=== PATIENT | female | born 1945 | race Caucasian/White ===

== ENCOUNTER 2019-11-26 13:15 | Outpatient (RCR) | payer OTHER, SELFPAY ==
[2019-11-01 12:35] VITALS: BP_SYST 100
--- NOTE | 2019-11-01 13:50 | PTOPEVAL ---
PHYSICAL THERAPY EVALUATION AND PLAN OF CARE Thank you for referring this patient to [facility]. I recommend Georgia Novak participate in physical therapy 1x/week for 3-4weeks for treatment of left shoulder pain. Please review, sign, date and return this plan of care CONSTANTINO. I agree with and certify that the following plan of care is medically necessary. Referring Physician Date Attending Provider: Obi Dee MD Evaluation Outpatient Past Medical History Cardiovascular History Hx Congenital Heart Disease Yes: medication: entrusto Other History Hx Cancer Yes: colon cancer 2016, no current tx but not remission yet Evaluation Information Diagnosis left shoulder pain Onset 06/2019 Cause insidious Subjective Information Here today for evaluation of Query Text:As Reported By Patient/ left shoulder pain last 3 Family months. had a cortisone injection in September that helped to relieve pain, but she continues to have difficulty raising arm, reaching behind back, putting left arm in coat. There is weakness as she tries to perform, but also has pain with certain range. Typically a left side sleeper. lymphnodes removed from left clavicular region in 2015 Diagnostic Tests X-Rays For This Problem Yes: mild AC joint OA; type 2 acromion Pain Scale Pain Scale Used Numeric (1 - 10) Self Report Pain Assessment Left Shoulder(s) Reported Pain Level 1 Pain Description Aching Radicular Pain Location stiffness Pain Frequency Chronic,Intermittent Current Pain Intensity 1 Lowest Pain Intensity 0 Greatest Pain Intensity 4 Other Pain Aggravating Factors reaching and stretching Pain Behaviors None Pain Score Pain Score 1: Self Report Cervical ROM Cervical Rotation Right (0-90) 40 Query Text:Active in Degrees Cervical Rotation Left (0-90) 57 Query Text:Active in Degrees Scapular/ Shoulder Range of Motion Left Shoulder Flexion - Active 108 Shoulder Flexion - Passive 125 Shoulder Abduction - Active 80 Shoulder Abduction - Passive 100 Shoulder Medial Rotation - Active L4 Query Text:Reach Behind the Back Shoulder Lateral Rotation - Active 59 Scapular/Shoulder Range of Motion after session
--- NOTE | 2019-11-19 09:43 | PCPTNOTE ---
Patient called & cancelled scheduled appointment this date due to COVID-19 precautions.
--- NOTE | 2019-11-26 14:14 | PTOPEVAL ---
PHYSICAL THERAPY PLAN OF CARE UPDATE AND PROGRESS REPORT Thank you for referring this patient to [facility]. I recommend a follow-up appointment in 2 weeks. Please review, sign, date and return this plan of care CONSTANTINO. I agree with and certify that the following plan of care is medically necessary. Referring Physician Date Attending Provider: Obi Dee MD Diagnosis left shoulder pain Onset 06/2019 Cause insidious Subjective Information Here today for evaluation of Query Text:As Reported By Patient/ left shoulder pain/decreased Family ROM. She reports she feels she is improving and progressing well. She has a luis antonio system at home to assist with ROM gains. Overall pain is very minimal except at end range motions. lymphnodes removed from left clavicular region in 2015 Diagnostic Tests X-Rays For This Problem Yes: mild AC joint OA; type 2 acromion Pain Assessment Timing of Pain Assessment Timing of Pain Assessment Assessment Pain Scale Pain Scale Used Numeric (1 - 10) Self Report Pain Assessment Left Shoulder(s) Reported Pain Level 1 Pain Description Aching Radicular Pain Location stiffness Pain Frequency Chronic,Intermittent Other Pain Aggravating Factors reaching and stretching Pain Behaviors None Pain Score Pain Score 1: Self Report Upper Extremity Range of Motion Scapular/ Shoulder Range of Motion Left Shoulder Flexion - Active 131 Shoulder Abduction - Active 121 Shoulder Medial Rotation - Active L4 Query Text:Reach Behind the Back Shoulder Lateral Rotation - Active 65 Scapular/Shoulder Range of Motion after session: flexion: 139deg Comments , abduction: 140deg; passive IR behind back: L1 horizontal abductioN: 90deg Upper Extremity Muscle Strength Testing Scapular/Shoulder Left Scapular Retraction - Middle Trapezius 4 Good Scapular Retraction - Lower Trapezius 4- Good - Shoulder Flexion Strength 5 Normal Shoulder Abduction Strength 4 Good Shoulder Medial Rotation Strength 5 Normal Shoulder Lateral Rotation Strength 5 Normal Special Tests-Upper Extremity Shoulder Special Tests Empty Can (supraspinatus) Test Positive Left Painful Arc Negative Left Drop Arm Test Negative Left Hawkin's Gerard Test Positive Left PT Clinical Summary Georgia Novak is progressing well toward optimal
--- NOTE | 2019-12-06 15:31 | PCPTNOTE ---
Admitting Provider: Attending Provider: Obi Dee MD Patient:Georgia Davis Date of :1945 Georgia Novak called to cancel her last appointment as she feels she is doing well and prefers to stay home according to COVID-19 precautions. Her last assessment was on 11/26/2019, therefore (he/she) will be discharged at this time. Patient?s initial visit was on 11/01/2019 and she had a total of 4 visits. The goals have been met. Thank you for referring this patient to [facility]. Please review, sign, date and return this discharge summary CONSTANTINO. I have been updated about the patient's current status and I agree with discharge from the above service at this time. Referring Physician Date
== END 2019-12-07 09:25 | disposition home or self-care (01) ==
LOC: ANHPT 13:15
PROVIDERS: PCP Internal Medicine; Visit Provider Orthopaedic Surgery
DX: M75.82 Other shoulder lesions, left shoulder (principal)
CPT/HCPCS: 97110; 97140; 97161

== ENCOUNTER 2020-01-15 14:42 | Outpatient (CLI) | payer OTHER, SELFPAY | END 2020-01-15 14:43 | disposition home or self-care (01) | LOC: ANHLAB 14:44 | PROVIDERS: PCP Internal Medicine; Visit Provider Internal Medicine | DX: E03.9 Hypothyroidism, unspecified (principal) | CPT/HCPCS: 36415; 84443 ==

== ENCOUNTER 2020-07-18 08:38 | Outpatient (CLI) | payer OTHER, SELFPAY ==
[2020-07-18 09:09] LABS: Basophils Percent Auto 0.8 % (0.2-1.2); Eosinophils Absolute Auto 0.3 K/mm3 (0-0.3); Eosinophils Percent Auto 6.1 % (0-4.4); Hematocrit 40.7 % (37.0-47.0); Hemoglobin 13.6 g/dL (12.0-15.0); Immature Granulocyte Absolute 0.01 K/mm3 (0.00-0.031); Immature Granulocyte Percent A 0.2 % (0-0.5); Lymphocytes Absolute Auto 1.46 K/mm3 (0.9-3.2); Lymphocytes Percent Auto 27.8 % (18.3-44.2); Mean Corpuscular HGB Conc 33.4 g/dl (32-36); Mean Corpuscular Hemoglobin 31.3 pg (26-34); Mean Corpuscular Volume 93.8 fl (80-100); Monocytes Absolute Auto 0.6 K/mm3 (0.1-0.6); Monocytes Percent Auto 10.6 % (2.6-8.5); Neutrophils Absolute Auto 2.9 K/mm3 (1.3-6.7); Neutrophils Percent Auto 54.5 % (45.5-73.1); Platelet Count Result 169 k/mm3 (150-375); Red Blood Count 4.34 M/mm3 (4.2-5.4); Red Cell Distribution Width 12.8 % (11.5-14.5); White Blood Count 5.3 K/mm3 (4.5-10.0)
[2020-07-18 09:20] LABS: Add Urine Microscopic? YES; Appearance Urine Clear (Clear); Bilirubin Urine Negative (Negative); Blood Urine Negative (Negative); Color Urine Yellow (Yellow); Glucose Urine UA Negative (Negative); Ketones Urine Negative (Negative); Leukocyte Esterase Ur Trace LEU/UL (NEGATIVE); Mucus Urine Rare /lpf; Nitrate Urine Negative (Negative); Protein Urine Negative (Negative); RBC Urine 0-2 /hpf (0-2); Specific Grav Ur 1.012 (1.001-1.035); Squamous Epithelial Cell Urine Rare /hpf (Few); Transitional Epi Cells Urine Rare /hpf (None Seen); Urobilinogen Urine Negative mg/dL (<2.0); WBC Urine 0-3 /hpf (0-3)
[2020-07-18 09:22] LABS: Alanine Aminotransferase 17 U/L (4-35); Albumin Level 4.3 g/dL (3.5-5.1); Alkaline Phosphatase 76 U/L (38-126); Anion Gap 7 mmol/L (8-16); Aspartate Amino Transferase 29 U/L (14-36); Bilirubin,Total 0.8 mg/dL (0.2-1.3); Blood Urea Nitrogen 12 mg/dL (7-17); Calcium 9.4 mg/dL (8.4-10.2); Carbon Dioxide 30 mmol/L (22-30); Chloride 105 mmol/L (98-107); Cholesterol 189 mg/dL (0-200); Estimated Glomerular Filt Rate 55; Glucose 104 mg/dL (65-105); HDL Direct 80 mg/dL; Potassium 4.2 mmol/L (3.4-5.0); Sodium 142 mmol/L (137-145); Triglycerides 103 mg/dL (<150)
[2020-07-18 09:33] LABS: LDL Cholesterol Direct 81 mg/dL
== END 2020-07-18 08:39 | disposition home or self-care (01) ==
PROVIDERS: PCP Internal Medicine; Visit Provider Internal Medicine
DX: E03.9 Hypothyroidism, unspecified (principal); E55.9 Vitamin D deficiency, unspecified; E78.2 Mixed hyperlipidemia; G62.9 Polyneuropathy, unspecified; F33.42 Major depressive disorder, recurrent, in full remission; I50.42 Chronic combined systolic (congestive) and diastolic (congestive) heart failure
CPT/HCPCS: 36415; 80053; 80061; 81001; 82306; 84443; 85025

== ENCOUNTER 2020-09-23 09:08 | Outpatient (RCR) | payer OTHER, SELFPAY | END 2020-12-22 23:59 | disposition home or self-care (01) | LOC: ANHVASCINF 09:08 | PROVIDERS: PCP Internal Medicine; Visit Provider Internal Medicine | DX: Z45.2 Encounter for adjustment and management of vascular access device (principal); C18.9 Malignant neoplasm of colon, unspecified; C78.7 Secondary malignant neoplasm of liver and intrahepatic bile duct | CPT/HCPCS: 96523 ==

== ENCOUNTER 2020-12-25 12:15 | Outpatient (CLI) | payer OTHER, SELFPAY ==
--- NOTE | 2020-12-25 17:32 | WPDPFTINT ---
PFT Procedure Performed PFT Procedure Performed Plethysmography (Lung Vol) Diffusing Cap (DLCO) Spirometry w/o Bronchodil PFT Interpretation This is a pulmonary function test with spirometry, plethysmography and diffusing capacity. The test was performed and results interpreted in accordance with the 2019 and 2005 ATS/ERS Task Force guidelines respectively using the Global Lung Function Initiative-2012 reference equations. Patient demonstrated good effort and cooperation. Reproducibility criteria were met. The quality of the spirometry maneuver was Grade A. Findings: Spirometry: the contour the inspiratory and expiratory flow tracing are normal. The FVC is 2.96 L, 97% predicted. The FEV1 is 2.11 L, 90% predicted. The FEV1: FVC ratio 71%. Plethysmography: The total lung capacity is 4.99 L, 91% predicted. The functional residual capacity is 2.68 L, 85% predicted. The residual volume is 2.01 L, 84% predicted. Diffusing capacity: The absolute diffusion capacity is 14.9, 70% predicted. The diffusing capacity corrected for alveolar volume is 3.30, 80% predicted. Impression: The spirometry is normal without evidence of an obstructive abnormality. The lung volumes are normal. The diffusing capacity is normal. There are no prior studies for comparison
== END 2020-12-25 12:16 | disposition home or self-care (01) ==
LOC: ANHPFT 12:16
PROVIDERS: PCP Internal Medicine; Visit Provider Nurse Practitioner Adult Health
DX: R06.02 Shortness of breath (principal)
CPT/HCPCS: 94375; 94726; 94729

== ENCOUNTER 2021-02-25 09:21 | Outpatient (CLI) | payer OTHER, SELFPAY ==
--- NOTE | ~2021-02-25 | MM_ITS ---
EXAMINATION: MM screening isidro BI w tamara HISTORY: Screening TECHNIQUE: Craniocaudal and mediolateral oblique 3-D tomosynthesis images were obtained and synthetic 2-D images were generated. CAD analysis was submitted and interpreted. COMPARISON: Comparison to multiple prior studies sequentially, with oldest reviewed study dated 05/29. BREAST PARENCHYMAL COMPOSITION: There are scattered areas of fibroglandular density. FINDINGS: The right breast is stable without evidence for malignancy. There is a port overlying the r ight axilla. There is a new irregular shaped mass in the upper outer quadrant of the left breast post eriorly measuring approximately 5 mm. IMPRESSION: 1. New irregular shaped left breast mass, upper outer quadrant. 2. Additional spot compression and mediolateral views with possible follow-up breast ultrasound recom mended. BI-RADS Category 0: Incomplete: Needs additional imaging evaluation. Reviewed, dictated and finalized at location A. IMPRESSION: 1. New irregular shaped left breast mass, upper outer quadrant. 2. Additional spot compression and mediolateral views with possible follow-up b reast ultrasound recommended. BI-RADS Category 0: Incomplete: Needs additional imaging evaluation.
--- NOTE | ~2021-02-25 | DEXA_ITS ---
Bone Density Report Name: Georgia Davis Age: 75 Sex: Female Ethnicity: White Date of : 1945 Indication: postmenopausal; cancer; Referring Provider: SAFIA RUFF Study: Bone densitometry was performed. Exam Date: February 25, 2021 Accession number: [id number] Bone Density: Region BMD T-score Z-score Classification AP Spine (L1-L4) 1.036 -0.1 2.2 Normal Femoral Neck (Left) 0.780 -0.6 1.4 Normal Total Hip (Left) 0.950 0.1 1.7 Normal Total Hip Bilateral Avg 0.898 -0.4 1.3 Normal Femoral Neck (Right) 0.701 -1.3 0.7 Osteopenia Total Hip (Right) 0.845 -0.8 0.9 Normal World Health Organization criteria for BMD impression classify patients as: Normal (T-score at or above -1.0), Osteopenia (T-score between -1.0 and -2.5), or Osteoporosis (T-score at or below -2.5). 10-year Fracture Risk(1): Major Osteoporotic Fracture 10% Hip Fracture 1.6% Reported Risk Factors: [place] (), Neck BMD=0.701, BMI=26.2 (1) FRAX(R) Version 3.08. Fracture probability calculated for an untreated patient. Fracture probability may be lower if the patient has received treatment. Previous Exams: Region Exam Age BMD T-score BMD Change BMD Change Date g/cm2 vs Baseline vs Previous AP Spine(L1-L4) 02/25/2021 75 1.036 -0.1 0.013(1.2%)# 0.000(0.0%) 01/27/2019 73 1.036 -0.1 0.013(1.3%)# -0.012(-1.1%) 07/26/2014 68 1.048 0.0 0.025(2.4%)# 0.025(2.4%)# 06/14/2012 66 1.023 -0.2 Total Hip(Left) 02/25/2021 75 0.950 0.1 -0.070(-6.9%)# 0.006(0.6%) 01/27/2019 73 0.944 0.0 -0.076(-7.4%)# -0.069(-6.8%)* 07/26/2014 68 1.012 0.6 -0.007(-0.7%)# -0.007(-0.7%)# 06/14/2012 66 1.020 0.6 Total Hip(Right) 02/25/2021 75 0.845 -0.8 -0.133(-13.6%) -0.048(-5.4%)* 01/27/2019 73 0.893 -0.4 -0.085(-8.7%)# -0.060(-6.3%)* 07/26/2014 68 0.953 0.1 -0.025(-2.5%)# -0.025(-2.5%)# 06/14/2012 66 0.978 0.3 *Denotes significance at 95% confidence level, LSC for AP Spine = 0.022 g/cm2, LSC for Total Hip = 0.027 g/cm2 Clinical Information Provided by Patient: Has used the following medications: Calcium Has the following medical conditions: Cancer, COLON Patient maximum height was 67 Menopause Age: 54 No regular weight bearing exercise Drinks caffeinated beverages Onset of menses at age 14 Number of children 1 Impression: The patient has low bone mass, based on the Right Femoral Neck T-score. The ramon
== END 2021-02-25 09:22 | disposition home or self-care (01) ==
LOC: ANHIMG 09:22
PROVIDERS: PCP Internal Medicine; Visit Provider Internal Medicine
DX: Z12.31 Encounter for screening mammogram for malignant neoplasm of breast (principal); M85.851 Other specified disorders of bone density and structure, right thigh; R92.8 Other abnormal and inconclusive findings on diagnostic imaging of breast
CPT/HCPCS: 77063; 77067; 77080

== ENCOUNTER 2021-03-23 12:02 | Outpatient (CLI) | payer OTHER, SELFPAY ==
--- NOTE | ~2021-03-23 | MMUS_ITS ---
EXAMINATION: MM diagnostic mammo unilat LT, US breast LT limited HISTORY: Irregular 5 mm mass in upper outer quadrant of left breast on 02/25/2021 screening mammogram TECHNIQUE: Additional 3-D tomosynthesis images of the left breast were performed and synthetic 2-D im ages were generated. CAD analysis was submitted and interpreted. High resolution upper outer quadrant left breast ultrasound was performed. COMPARISON: 02/25/2021 bilateral digital screening mammogram 11/22/2018 bilateral diagnostic digital mammogram 11/13/2018, 11/10/2017 bilateral digital screening mammogram examinations FINDINGS: MAMMOGRAPHIC FINDINGS: There is an approximately 4.8 mm persistent suspicious irregular high density opacity in the upper ou ter quadrant of the left breast. Malignancy is suspected. ULTRASOUND: New 12:00 6 cm from the nipple there is an antiparallel irregular hypoechoic approximately 4.9 mm the 3.4 mm wide mass with minimal adjacent vascularity on color flow imaging, with posterior shadowing. IMPRESSION: 1. 4.9 mm irregular new mass in inner aspect of upper outer quadrant of left breast 6 cm from the nip ple. 2. Stereotactic biopsy is recommended. (The lesion is much easier to identify on mammography as opposed ultrasound.) BI-RADS category 4, suspicious findings. Dr. Whiteside telephoned the report and recommendation for stereotactic biopsy of left breast mass on 03/23 at 1315 hours to voicemail at [phone]. Reviewed, dictated and finalized at location A. IMPRESSION: 1. 4.9 mm irregular new mass in inner aspect of upper outer quadrant of left br east 6 cm from the nipple. 2. Stereotactic biopsy is recommended. (The lesion is much easier to identify on mammography as opposed ultrasound.) BI-RADS category 4, suspicious findings. Dr. Whiteside telephoned the report and recommendation for stereotactic biopsy of le ft breast mass on 03/23/2021 at 1315 hours to voicemail at [phone]. IMPRESSION: 1. 4.9 mm irregular new mass in inner aspect of upper outer quadrant of left br east 6 cm from the nipple. 2. Stereotactic biopsy is recommended. (The lesion is much easier to identify on mammography as opposed ultrasound.) BI-RADS category 4, suspicious findings. Dr. Whiteside telephoned the report and recommendation for stereotactic biopsy of le ft breast mass on 03/23/2021 at 1315 hours to voicemail at [phone].
== END 2021-03-23 12:03 | disposition home or self-care (01) ==
LOC: ANHIMG 12:06
PROVIDERS: PCP Internal Medicine; Visit Provider Internal Medicine
DX: R92.8 Other abnormal and inconclusive findings on diagnostic imaging of breast (principal)
CPT/HCPCS: 76642; 77065

== ENCOUNTER 2021-04-21 07:01 | Outpatient (CLI) | payer OTHER, SELFPAY ==
[2021-04-21 08:28] LABS: Basophils Absolute Auto 0.1 K/mm3 (0.0-0.1); Basophils Percent Auto 0.8 % (0.2-1.2); Eosinophils Absolute Auto 0.5 K/mm3 (0-0.3); Eosinophils Percent Auto 8.9 % (0-4.4); Hematocrit 42.2 % (37.0-47.0); Hemoglobin 13.5 g/dL (12.0-15.0); Immature Granulocyte Absolute 0.01 K/mm3 (0.00-0.031); Immature Granulocyte Percent A 0.2 % (0-0.5); Lymphocytes Absolute Auto 1.91 K/mm3 (0.9-3.2); Lymphocytes Percent Auto 31.4 % (18.3-44.2); Mean Corpuscular Hemoglobin 30.2 pg (26-34); Mean Corpuscular Volume 94.4 fl (80-100); Mean Platelet Volume 10.7 fl (7.4-10.4); Monocytes Absolute Auto 0.7 K/mm3 (0.1-0.6); Monocytes Percent Auto 11.5 % (2.6-8.5); Neutrophils Absolute Auto 2.9 K/mm3 (1.3-6.7); Neutrophils Percent Auto 47.2 % (45.5-73.1); Platelet Count Result 152 k/mm3 (150-375); Red Blood Count 4.47 M/mm3 (4.2-5.4); Red Cell Distribution Width 13.2 % (11.5-14.5); White Blood Count 6.1 K/mm3 (4.5-10.0)
[2021-04-21 09:04] LABS: Albumin Level 4.4 g/dL (3.5-5.1); Alkaline Phosphatase 67 U/L (38-126); Anion Gap 7 mmol/L (8-16); Aspartate Amino Transferase 27 U/L (14-36); Bilirubin,Total 0.8 mg/dL (0.2-1.3); Blood Urea Nitrogen 13 mg/dL (7-17); Calcium 9.4 mg/dL (8.4-10.2); Carbon Dioxide 26 mmol/L (22-30); Chloride 108 mmol/L (98-107); Estimated Glomerular Filt Rate 54; Glucose 99 mg/dL (65-110); Potassium 4.1 mmol/L (3.4-5.0); Sodium 141 mmol/L (137-145)
[2021-04-21 09:25] LABS: Alanine Aminotransferase 16 U/L (4-35)
[2021-04-21 09:58] LABS: Folic Acid 12.9 ng/mL (2.76->20)
[2021-04-21 10:38] LABS: Creatinine Urine 110.9 mg/dL
[2021-04-21 10:42] LABS: MALB Creatinine Ratio 31.4 mg/g (0-30); Microalbumin Urine Random 34.8 mg/L (0-16.7)
[2021-04-21 12:48] LABS: Vitamin D 25 Hydroxy 57.8 ng/mL
== END 2021-04-21 07:02 | disposition home or self-care (01) ==
LOC: ANHLAB 07:05
PROVIDERS: PCP Internal Medicine; Visit Provider Internal Medicine
DX: D50.9 Iron deficiency anemia, unspecified (principal); G62.9 Polyneuropathy, unspecified; E03.9 Hypothyroidism, unspecified; E55.9 Vitamin D deficiency, unspecified; F33.42 Major depressive disorder, recurrent, in full remission; I50.42 Chronic combined systolic (congestive) and diastolic (congestive) heart failure
CPT/HCPCS: 36415; 80053; 82043; 82306; 82607; 82746; 84443; 85025

== ENCOUNTER 2021-04-23 12:18 | Outpatient (RCR) | payer OTHER, SELFPAY | END 2021-04-29 23:59 | disposition home or self-care (01) | LOC: ANHLAB 12:18 | PROVIDERS: PCP Internal Medicine; Referring Provider Internal Medicine | DX: Z45.2 Encounter for adjustment and management of vascular access device (principal); C18.9 Malignant neoplasm of colon, unspecified; C78.7 Secondary malignant neoplasm of liver and intrahepatic bile duct | CPT/HCPCS: 96523 ==

== ENCOUNTER 2021-06-02 07:41 | Outpatient (CLI) | payer OTHER, SELFPAY | END 2021-06-02 07:42 | disposition home or self-care (01) | PROVIDERS: PCP Internal Medicine; Visit Provider Internal Medicine | DX: E03.9 Hypothyroidism, unspecified (principal) | CPT/HCPCS: 36415; 84443 ==

== ENCOUNTER 2021-09-10 12:40 | Outpatient (CLI) | payer OTHER, SELFPAY | END 2021-09-10 12:41 | disposition home or self-care (01) | LOC: ANHLAB 12:44 | PROVIDERS: PCP Internal Medicine; Visit Provider Internal Medicine Medical Oncology | DX: C18.9 Malignant neoplasm of colon, unspecified (principal); C78.7 Secondary malignant neoplasm of liver and intrahepatic bile duct | CPT/HCPCS: 96523 ==

== ENCOUNTER 2022-02-10 12:34 | Outpatient (RCR) | payer OTHER, SELFPAY | END 2022-05-11 23:59 | disposition home or self-care (01) | LOC: ANHLAB 12:34 | PROVIDERS: PCP Internal Medicine; Visit Provider Internal Medicine Medical Oncology | DX: Z45.2 Encounter for adjustment and management of vascular access device (principal); C50.412 Malignant neoplasm of upper-outer quadrant of left female breast; Z17.0 Estrogen receptor positive status [ER+] | CPT/HCPCS: 96523 ==

== ENCOUNTER 2022-03-22 15:01 | Outpatient (CLI) | payer OTHER, SELFPAY ==
--- NOTE | ~2022-03-22 | DEXA_ITS ---
Bone Density Report Name: UZAIR NOVOA Age: 76 Sex: Female Ethnicity: White Date of : 1945 Indication: postmenopausal; screening for osteoporosis; height loss; cancer; Referring Provider: NENICKI Study: Bone densitometry was performed. Exam Date: March 22, 2022 Accession number: [id number] Bone Density: Region BMD T-score Z-score Classification AP Spine(L1-L4) 1.059 0.1 2.5 Normal Femoral Neck (Left) 0.777 -0.6 1.4 Normal Total Hip (Left) 0.953 0.1 1.8 Normal Femoral Neck (Right) 0.712 -1.2 0.8 Osteopenia Total Hip (Right) 0.872 -0.6 1.2 Normal Total Hip Mean 0.913 -0.3 1.5 Normal World Health Organization criteria for BMD impression classify patients as: Normal (T-score at or above -1.0), Osteopenia (T-score between -1.0 and -2.5), or Osteoporosis (T-score at or below -2.5). 10-year Fracture Risk(1): Major Osteoporotic Fracture 10% Hip Fracture 1.7% Reported Risk Factors: [place] (), Neck BMD=0.712, BMI=26.2 (1) FRAX(R) Version 3.08. Fracture probability calculated for an untreated patient. Fracture probability may be lower if the patient has received treatment. Previous Exams: Region Exam Age BMD T-score BMD Change BMD Change Date g/cm2 vs Baseline vs Previous AP Spine (L1-L4) 03/22/2022 76 1.059 0.1 0.024 (2.3%)* 0.024 (2.3%)* 02/25/2021 75 1.036 -0.1 0.000 (0.0%) 0.000 (0.0%) 01/27/2019 73 1.036 -0.1 Total Hip(Left) 03/22/2022 76 0.953 0.1 0.009 (1.0%) 0.003 (0.4%) 02/25/2021 75 0.950 0.1 0.006 (0.6%) 0.006 (0.6%) 01/27/2019 73 0.944 0.0 Total Hip(Right) 03/22/2022 76 0.872 -0.6 -0.021 (-2.3%) 0.027 (3.2%) 02/25/2021 75 0.845 -0.8 -0.048 (-5.4%) -0.048 (-5.4%) 01/27/2019 73 0.893 -0.4 *Denotes significance at 95% confidence level, LSC for AP Spine = 0.022 g/cm2, LSC for Total Hip = 0.027 g/cm2 Clinical Information Provided by Patient: Has used the following medications: Vitamin D, Calcium Has the following medical conditions: Cancer Patient maximum height was 68 Menopause Age: 54 No regular weight bearing exercise Onset of menses at age 14 Number of children 1 Impression: The patient has low bone mass, based on the Right Femoral Neck T-score. The patient has an estimated ten-year risk of hip fracture of 1.7% and an estimated ten-year risk of major fracture of 10%, based on the WHO FRAX algorithm. No signific
== END 2022-03-22 15:02 | disposition home or self-care (01) ==
PROVIDERS: PCP Internal Medicine; Visit Provider Internal Medicine Medical Oncology
DX: Z78.0 Asymptomatic menopausal state (principal); M85.851 Other specified disorders of bone density and structure, right thigh; C18.9 Malignant neoplasm of colon, unspecified; C78.7 Secondary malignant neoplasm of liver and intrahepatic bile duct
CPT/HCPCS: 77080

== ENCOUNTER 2022-07-30 10:53 | Outpatient (RCR) | payer OTHER, SELFPAY | END 2022-09-09 23:59 | disposition home or self-care (01) | LOC: ANHLAB 10:53 | PROVIDERS: PCP Internal Medicine; Visit Provider Internal Medicine Medical Oncology | DX: Z45.2 Encounter for adjustment and management of vascular access device (principal); C50.412 Malignant neoplasm of upper-outer quadrant of left female breast; Z17.0 Estrogen receptor positive status [ER+] | CPT/HCPCS: 96523 ==

== ENCOUNTER 2022-09-29 15:26 | Outpatient (CLI) | payer OTHER, SELFPAY ==
--- NOTE | ~2022-09-29 | MR_ITS ---
MRI of the right knee Clinical history: Pain Technique: Coronal proton density and proton density-weighted images, sagittal proton-density and T2 fat-sat images, and axial proton-density fat-saturated images were acquired. Findings: Anterior and posterior cruciate ligaments are intact. Medial collateral ligament and the la teral collateral ligament complex are intact. There is probable degenerative change at the proximal a spect of the fibular collateral ligament. Popliteus tendon is intact, with probable mild tendinosis. There is probable focal tearing at the junction of the anterior horn and body lateral meniscus. No me dial meniscal tear identified. Articular cartilage is well preserved in medial lateral compartments. There is extensive high-grade c hondromalacia patella. There there are focal areas of moderate chondromalacia of the femoral trochlea . Small osteophytes are present at the lateral joint line. Bone marrow signals are unremarkable. Extensor mechanism is intact. Small joint effusion is present. Bcwyb-ct-wyamazjf Nichols's cyst is pres ent. Impression: Probable focal vertical tear at the junction of the anterior horn and body of the lateral meniscus. 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 Small joint effusion with ghthv-cb-lrxfhofo Nichols's cyst. Reviewed, dictated and finalized at location . HEAD STOCK CLERK Impression: Probable focal vertical tear at the junction of the anterior horn and body of t he lateral meniscus. 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 Small joint effusion with olalg-ds-xuhhvzfo Nichols's cyst.
== END 2022-09-29 15:27 | disposition home or self-care (01) ==
PROVIDERS: PCP Internal Medicine; Visit Provider Physician Assistant Surgical
DX: M23.91 Unspecified internal derangement of right knee (principal); M94.261 Chondromalacia, right knee; M71.21 Synovial cyst of popliteal space [Baker], right knee; M25.461 Effusion, right knee
CPT/HCPCS: 73721

== ENCOUNTER 2022-10-22 12:14 | Outpatient (CLI) | payer OTHER, SELFPAY ==
--- NOTE | 2022-10-22 12:36 | ECG_ITS ---
Measurements Intervals Maynard Rate: 67 P: 30 OH: 127 QRS: 4 QRSD: 86 T: 23 QT: 388 QTc: 411 Interpretive Statements SINUS RHYTHM LOW QRS VOLTAGE IN PRECORDIAL LEADS [QRS DEFLECTION < 1.0 mV IN CHEST LEADS] OTHERWISE NORMAL ECG NO PREVIOUS ECG AVAILABLE FOR COMPARISON Electronically Signed On 10-22-2022 15:39:40 LINESPERSON by Ruperto Bear M.D.
== END 2022-10-22 12:15 | disposition home or self-care (01) ==
LOC: ANHSURGERY 12:17
PROVIDERS: PCP Internal Medicine; Visit Provider Orthopaedic Surgery
DX: I50.42 Chronic combined systolic (congestive) and diastolic (congestive) heart failure (principal)
CPT/HCPCS: 93005

== ENCOUNTER 2022-10-29 00:33 | Day surgery (SDC) | payer OTHER, SELFPAY ==
[2022-10-21 09:27] VITALS: BMI 25.9
--- NOTE | 2022-10-21 09:55 | PC.NURSE ---
Report to the Outpatient Waiting Room, entrance under the green pavilion located off [facility], at time __1:00PM on date ___10/29/22____. Planned Procedure Time: _3:00PM . Time changes happen often and if your time is changed the preop area will call you the afternoon before. - You and your visitor will be asked to self-screen and do not enter if you have any COVID symptoms. - Only one visitor is requested with a max of two and NO children visitors are allowed at this time. - The patient visitor may be requested to leave or wait in car when not with patient due to distancing restrictions. - A mask is optional within the hospital at this time. Patients may have clear liquids (water, carbonated beverages, clear teas, apple juice) until 3 hours prior to surgery with a maximum of 20 ounces. - No food from midnight until time of surgery Take the following medications with a SIP of water the morning of surgery: ___CARVEDILOL, LEVOTHYROXINE, EYE DROPS DO NOT STOP ANY OF YOUR OTHER PRESCRIPTION MEDICATIONS PRIOR TO SURGERY ?EXCEPT THE FOLLOWING Medications to discontinue per physician ____HOLD ALL VITAMINS/SUPPLEMENTS 3 DAYS PRE-OP Date to take last dose___11/22/22 Please no make-up, nail kyrgyz, hairspray, perfume, deodorant, or body powder the day of surgery. No jewelry (including any body piercings) or valuables the day of surgery, leave them at home. Please take a shower or bath the night before, or the morning of, surgery with an antibacterial soap. Wear comfortable, loose fitting clothing. Children are encouraged to wear pajamas. - Jewelry must be removed prior to entering the operating room. Rings and piercings that are not removed may be cut off. - The hospital will not accept responsibility for valuables. - Please leave all valuables, including medications, at home the day of surgery. If you are going home after surgery, a licensed mechanic driver must drive you home. - NO public transportation without another adult if you receive anesthesia. - We recommend that an adult stay with you for 24 hours following discharge. - We also recommend that you do not drive, make important decision, drink alcoholic beverages, or take any drugs that were not prescribed by your health care provider for at least 24 hours after your discharge time. Follow any additional instructions given to you from your surgeon. If you or anyone in your household have experienced Covid symptoms in the past week, please notify your surgeon or the nurse liaison at the phone number below for possible testing. Telephone instructions given to __PATIENT and asked if any additional questions and then verbalized understanding. Patient advised to call surgeon office or pre surgery nurse liaison [phone] if any additional questions.
[2022-10-29] VITALS (7 sets, daily range): BP systolic 102–118; BP diastolic 48–63; PULSE 57–79; RESP 12–20; TEMP 36.6; O2SAT 100
--- NOTE | 2022-10-29 10:34 | WPDHPUPDATE1 ---
History and Physical Update Update Date/Time: 10/29/22 10:34 History and Physical has been reviewed, including an updated exam of the patient. There are NO changes in the patient's condition. Risks, benefits, and alternatives have been discussed and questions answered. Patient agrees to proceed with procedure.
[2022-10-29] MEDS: ACETAMINOPHEN 500 MG TABLET 1000 MG PO (13:40)
--- NOTE | 2022-10-29 13:53 | WPDANESEPPF ---
Anes - Initial Pre Proc Eval Procedure: Operation Date: 10/29/22 15:00 Proposed Procedures p Right Knee Arthroscopic Partial Lateral Meniscectomy - Obi Dee MD Date/Time: 10/29/22 13:53 Surgeon: Obi Dee MD Pre Op Diagnosis: Lateral Meniscus Tear Right Knee Patient Data Age: 76 Gender: F Height: 1.7 m Weight: 74.5 kg Allergies Allergy/AdvReac Type Severity Reaction Status Date / Time iodine Allergy Mild Sneezing Verified 10/21/22 09:21 aspirin Allergy Unknown Wheezing Verified 10/21/22 09:21 Penicillins Allergy Unknown Hives Verified 10/21/22 09:21 codeine AdvReac Unknown Nausea Verified 10/21/22 09:21 Home Medications Medication Instructions Recorded Confirmed Type sacubitril 24 mg-valsartan 26 mg 0.5 tablet PO BID 08/02/19 10/29/22 History tablet (Entresto) zinc 50 mg tablet 50 mg PO DAILY 01/15/21 10/29/22 History lifitegrast 5 % eye drops in a 1 drp EACH EYE .COMPLEX 04/20/21 10/29/22 History dropperette calcium carbonate 600 mg-vitamin 1 cap PO DAILY 08/10/21 10/29/22 History D3 12.5 mcg (500 unit) capsule (Calcium 600 with Vitamin D3) anastrozole 1 mg tablet 1 mg PO DAILY 07/14/22 10/29/22 History carvedilol 6.25 mg tablet (Coreg) 6.25 mg PO BID 07/14/22 10/29/22 History levothyroxine 75 mcg tablet 75 mcg PO QAM 10/21/22 10/29/22 History Patient hx anesthesia problems: none Family hx anesthesia problems: none Results Review: All pre-operative results and documents have been reviewed as part of the pre-operative evaluation. [facility], [facility] Past Medical History Medical History Bilateral knee pain Osteoarthritis of both knees Tendonitis of left rotator cuff Family History Family History Mother Family history of kidney disease Family history of diabetes mellitus in first degree relative Diabetes mellitus Family history of obesity Sibling Family history of kidney disease Father Family history of lung cancer Cerebrovascular accident Social History Social History Smoking status: Never smoker Second hand tobacco smoke exposure: Yes Alcohol intake: current Drinks per week: 7 Substance use: never Substance use type: does not use Lack of Transportation: No Lack of Food: Never True Current Housing: I Have Housing Concerned About Future Housing: No Difficulty Paying Gas/Electric Bills: No Difficulty Paying for Meds: No Currently Unemployed: No Education: High School Diploma/GED Difficulty w/ Childcare or Family Care: No Living arrangements: with family Additional living arrangements comments: Spiritual care concerns: No Anes - Eval Final PreProcedure Day of Procedure 10/29/22 13:53 Patient weight: normal Heart: regular rate and rhythm Lungs: clear to auscultation Airway: Mallampati scale class II Neurological: alert and oriented Last oral intake: >/= 8 hours ASA classification: III Emergent: no Anesthetic plan: proceed Anesthesia type and monitoring: general LMA and standard monitoring Results Review: All pre-operative results and documents have been reviewed as part of the pre-operative evaluation. Informed Consent: The patient's anesthetic plan and its attendant risks and benefits were discussed with the patient/family/POA. Questions were solicited and answers provided to the satisfaction of the patient/family/POA.
[2022-10-29] MEDS: ceFAZolin 2 GM/D5W 50 ML 2 GM/50 ML BAG IVPB (14:37)
[2022-10-29] MEDS: BUPIVACAINE/EPINEPHRINE 0.5% 10 ML VIAL 30 ML INFILTRATE (14:56)
[2022-10-29] MEDS: LACTATED RINGERS 1,000 ML 30 ML IV CONT (15:27)
[2022-10-29] MEDS: fentaNYL CITRATE INJ (*CRX) 100 MCG/2 ML VIAL 25 MCG IV PUSH (15:55)
--- NOTE | 2022-10-29 16:02 | P.OP_ITS ---
Procedure Note - Detailed Date of Procedure 10/29/22 Pre-op Diagnosis Lateral Meniscus Tear Right Knee Post-op Diagnosis Same Procedure Performed Arthroscopic partial lateral meniscectomy, right knee. 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 Grade 2 chondromalacia on the tibia. Extensive degenerative tearing of the lateral meniscus with 50% debridement required. Minimal anterior horn debridement of the medial meniscus. Grade 3 degenerative changes at the patellofemoral joint. Grade 2 in the medial compartment. Moderate synovitis. Description of Procedure The patient was identified and the surgical site confirmed and signed in the preoperative holding area. Antibiotics were started per protocol. She was brought to the operative room and transferred to the OR table. A general anesthetic was administered. Supine position with the operative lower extremity position in the leg saini after placement of a well padded tourniquet. The leg support was lowered and the contralateral limb was supported with a soft bolster. The knee was prepped and draped in the usual sterile fashion. A time- out was performed. The portal sites were marked and infiltrated with 0.5% Marcaine 20 mL. The limb was exsanguinated and the tourniquet inflated to 300 mL Hg. Standard inferolateral and inferomedial portals were established. Inflow was obtained with the saline pump. The camera was introduced. Diagnostic inspection of the joint was accomplished. The lateral meniscus was debrided with the arthroscopic shaver and punches until stable. The radiofrequency probe was also used for further d?bridement. Medial meniscus required very minimal debridement in the anterior horn. The arthroscopic instruments were removed. The tourniquet released and wounds closed with subcutaneous 4-0 Monocryl absorbable suture. Steri strips and a sterile dressing were applied. A light elastic wrap was placed. The patient was extubated and brought to the recovery room in stable condition. Estimated Blood Loss 5 Drains No Complications No immediate complications Condition Stable Disposition PACU [facility] Billing Surgery - Charge Forward: Surgery Billing
[2022-10-29] MEDS: oxyCODONE HCL (*CRX) 2.5 MG TAB IR PO (16:36)
== END 2022-10-29 17:18 | disposition home or self-care (01) ==
PROVIDERS: PCP Internal Medicine; Visit Provider Orthopaedic Surgery
PROC: (CPT 29870; principal; 2022-10-29 15:00)
DX: M23.361 Other meniscus derangements, other lateral meniscus, right knee (principal); M94.261 Chondromalacia, right knee; M65.861 Other synovitis and tenosynovitis, right lower leg; M17.0 Bilateral primary osteoarthritis of knee
CPT/HCPCS: 29881; A9270; J0690; J1100; J2405; J2704; J3010; J7120

== ENCOUNTER 2022-12-09 10:32 | Outpatient (RCR) | payer OTHER, SELFPAY | END 2022-12-14 23:59 | disposition home or self-care (01) | LOC: ANHLAB 10:32 | PROVIDERS: PCP Internal Medicine; Visit Provider Internal Medicine Medical Oncology | DX: Z45.2 Encounter for adjustment and management of vascular access device (principal); C50.412 Malignant neoplasm of upper-outer quadrant of left female breast; Z17.0 Estrogen receptor positive status [ER+] | CPT/HCPCS: 96523 ==

== ENCOUNTER 2023-03-10 10:51 | Outpatient (CLI) | payer OTHER, SELFPAY ==
[2023-03-10 12:38] LABS: Vitamin D 25 Hydroxy 50.9 ng/mL
== END 2023-03-10 10:52 | disposition home or self-care (01) ==
PROVIDERS: PCP Internal Medicine; Visit Provider Physician Assistant
DX: E55.9 Vitamin D deficiency, unspecified (principal); E03.9 Hypothyroidism, unspecified
CPT/HCPCS: 36415; 36592; 82306; 84443

== ENCOUNTER 2023-04-21 10:20 | Outpatient (RCR) | payer OTHER, SELFPAY | END 2023-04-27 23:59 | disposition home or self-care (01) | LOC: ANHLAB 10:20 | PROVIDERS: PCP Internal Medicine; Visit Provider Internal Medicine Medical Oncology | DX: Z45.2 Encounter for adjustment and management of vascular access device (principal); C18.9 Malignant neoplasm of colon, unspecified | CPT/HCPCS: 96523 ==

== ENCOUNTER 2023-05-05 09:20 | Outpatient (CLI) | payer OTHER, SELFPAY | END 2023-05-05 09:21 | disposition home or self-care (01) | PROVIDERS: PCP Internal Medicine; Referring Provider Internal Medicine Medical Oncology; Visit Provider Physician Assistant | DX: R19.7 Diarrhea, unspecified (principal) | CPT/HCPCS: 87045; 87427; 87449 ==

== ENCOUNTER 2023-08-09 10:43 | Outpatient (RCR) | payer OTHER, SELFPAY | END 2023-09-20 23:59 | disposition home or self-care (01) | LOC: ANHLAB 10:43 | PROVIDERS: PCP Internal Medicine; Visit Provider Internal Medicine Medical Oncology | DX: Z45.2 Encounter for adjustment and management of vascular access device (principal); C18.9 Malignant neoplasm of colon, unspecified | CPT/HCPCS: 96523 ==

== ENCOUNTER 2023-08-16 13:49 | Outpatient (CLI) | payer OTHER, SELFPAY ==
--- NOTE | ~2023-08-16 | DEXA_ITS ---
Bone Density Report Name: UZAIR NOVOA Age: 77 Sex: Female Ethnicity: White Date of : 1945 Indication: postmenopausal; screening for osteoporosis; height loss; cancer; Referring Provider: ROBERT SÁNCHEZ Study: Bone densitometry was performed. Exam Date: August 16, 2023 Accession number: [id number] Bone Density: Region BMD T-score Z-score Classification AP Spine(L1-L4) 1.104 0.5 3.0 Normal Femoral Neck (Left) 0.787 -0.6 1.6 Normal Total Hip (Left) 0.964 0.2 2.0 Normal Femoral Neck (Right) 0.725 -1.1 1.0 Osteopenia Total Hip (Right) 0.855 -0.7 1.1 Normal Total Hip Mean 0.909 -0.3 1.6 Normal World Health Organization criteria for BMD impression classify patients as: Normal (T-score at or above -1.0), Osteopenia (T-score between -1.0 and -2.5), or Osteoporosis (T-score at or below -2.5). 10-year Fracture Risk(1): Major Osteoporotic Fracture 10% Hip Fracture 1.8% Reported Risk Factors: [place] (), Neck BMD=0.725, BMI=26.2 (1) FRAX(R) Version 3.08. Fracture probability calculated for an untreated patient. Fracture probability may be lower if the patient has received treatment. Previous Exams: Region Exam Age BMD T-score BMD Change BMD Change Date g/cm2 vs Baseline vs Previous AP Spine (L1-L4) 08/16/2023 77 1.104 0.5 0.068 (6.6%)* 0.045 (4.2%)* 03/22/2022 76 1.059 0.1 0.024 (2.3%)* 0.024 (2.3%)* 02/25/2021 75 1.036 -0.1 0.000 (0.0%) 0.000 (0.0%) 01/27/2019 73 1.036 -0.1 Total Hip(Left) 08/16/2023 77 0.964 0.2 0.020 (2.2%) 0.011 (1.2%) 03/22/2022 76 0.953 0.1 0.009 (1.0%) 0.003 (0.4%) 02/25/2021 75 0.950 0.1 0.006 (0.6%) 0.006 (0.6%) 01/27/2019 73 0.944 0.0 Total Hip(Right) 08/16/2023 77 0.855 -0.7 -0.038 (-4.3%) -0.017 (-2.0%) 03/22/2022 76 0.872 -0.6 -0.021 (-2.3%) 0.027 (3.2%) 02/25/2021 75 0.845 -0.8 -0.048 (-5.4%) -0.048 (-5.4%) 01/27/2019 73 0.893 -0.4 *Denotes significance at 95% confidence level, LSC for AP Spine = 0.022 g/cm2, LSC for Total Hip = 0.027 g/cm2 Clinical Information Provided by Patient: Has used the following medications: Vitamin D, Calcium Has the following medical conditions: Cancer Patient maximum height was 68 Menopause Age: 54 No regular weight bearing exercise Onset of menses at age 14 Number of children 1 Impression: The patient has low bone mass, based on the
== END 2023-08-16 13:50 | disposition home or self-care (01) ==
PROVIDERS: PCP Internal Medicine; Visit Provider Physician Assistant
DX: M85.851 Other specified disorders of bone density and structure, right thigh (principal); Z78.0 Asymptomatic menopausal state
CPT/HCPCS: 77080

== ENCOUNTER 2023-09-27 10:26 | Outpatient (RCR) | payer OTHER, SELFPAY | END 2023-12-26 23:59 | disposition home or self-care (01) | LOC: ANHLAB 10:26 | PROVIDERS: PCP Internal Medicine; Visit Provider Internal Medicine Medical Oncology | DX: Z45.2 Encounter for adjustment and management of vascular access device (principal); C18.9 Malignant neoplasm of colon, unspecified | CPT/HCPCS: 96523 ==

== ENCOUNTER 2023-11-02 13:56 | Outpatient (CLI) | payer OTHER, SELFPAY ==
--- NOTE | ~2023-11-02 | XR_ITS ---
EXAMINATION: XR knee LT min 4V DATE: 11/02/2023 14:29 INDICATION: Unilateral primary osteoarthritis, left knee. TECHNIQUE: 4 views of left knee including standing views were obtained. COMPARISON: Left knee radiographs 03/22/2018 FINDINGS: There is lateral subluxation of patella. No fracture. There is moderate osteoarthritis of m edial compartment and mild osteoarthritis of lateral and patellofemoral compartments. No knee joint e ffusion. IMPRESSION: 1. Moderate left knee osteoarthritis. Reviewed, dictated and finalized at location E. 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
--- NOTE | ~2023-11-02 | XR_ITS ---
EXAMINATION: XR knee RT min 4V DATE: 11/02/2023 14:29 INDICATION: Unilateral primary osteoarthritis, right knee. TECHNIQUE: 4 views of right knee including standing views were obtained. COMPARISON: Right knee radiographs 05/11/2023 FINDINGS: Bone alignment is normal. No fracture. There is mild osteoarthritis of medial compartment a nd moderate osteoarthritis of lateral and patellofemoral compartments. There is a small knee joint ef fusion. IMPRESSION: 1. Moderate right knee osteoarthritis. 2. Small right knee joint effusion. Reviewed, dictated and finalized at location E. 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
== END 2023-11-02 13:57 | disposition home or self-care (01) ==
PROVIDERS: PCP Internal Medicine; Visit Provider Orthopaedic Surgery
DX: M17.0 Bilateral primary osteoarthritis of knee (principal); M25.462 Effusion, left knee; M25.461 Effusion, right knee
CPT/HCPCS: 73564

== ENCOUNTER 2024-01-27 13:47 | Outpatient (CLI) | payer OTHER, SELFPAY ==
--- NOTE | 2024-01-27 14:03 | ECG_ITS ---
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 Measurements Intervals Kinney Rate: 68 P: 33 OK: 129 QRS: 3 QRSD: 80 T: 39 QT: 364 QTc: 389 Interpretive Statements SINUS RHYTHM WITH FREQUENT VENTRICULAR PREMATURE COMPLEXES LOW QRS VOLTAGE IN PRECORDIAL LEADS ABNORMAL ECG No previous ECG available for comparison Electronically Signed On 01-27-2024 14:48:03 CDT by Saúl Saab D.O.
[2024-01-27 15:04] LABS: Hemoglobin 13.1 g/dL (12.0-15.0)
[2024-01-27 15:41] LABS: Albumin Level 4.1 g/dL (3.5-5.1); Estimated Glomerular Filt Rate 48; Glucose 91 mg/dL (65-110)
== END 2024-01-27 13:48 | disposition home or self-care (01) ==
PROVIDERS: PCP Internal Medicine; Visit Provider Orthopaedic Surgery
DX: Z01.818 Encounter for other preprocedural examination (principal); M17.11 Unilateral primary osteoarthritis, right knee; R53.81 Other malaise; I50.42 Chronic combined systolic (congestive) and diastolic (congestive) heart failure
CPT/HCPCS: 36415; 82040; 82565; 82947; 85014; 85018; 93005

== ENCOUNTER 2024-02-29 11:54 | Outpatient (CLI) | payer OTHER, SELFPAY ==
[2024-02-29 13:43] LABS: Basophils Percent Auto 0.6 % (0.2-1.2); Eosinophils Absolute Auto 0.3 K/mm3 (0-0.3); Hematocrit 41.7 % (37.0-47.0); Hemoglobin 13.9 g/dL (12.0-15.0); Immature Granulocyte Absolute 0.01 K/mm3 (0.00-0.031); Immature Granulocyte Percent A 0.2 % (0-0.5); Lymphocytes Absolute Auto 1.37 K/mm3 (0.9-3.2); Lymphocytes Percent Auto 21.4 % (18.3-44.2); Mean Corpuscular HGB Conc 33.3 g/dl (32-36); Mean Corpuscular Hemoglobin 31.2 pg (26-34); Mean Corpuscular Volume 93.5 fl (80-100); Monocytes Absolute Auto 0.8 K/mm3 (0.1-0.6); Monocytes Percent Auto 12.2 % (2.6-8.5); Neutrophils Absolute Auto 3.9 K/mm3 (1.3-6.7); Neutrophils Percent Auto 60.6 % (45.5-73.1); Platelet Count Result 145 k/mm3 (150-375); Red Blood Count 4.46 M/mm3 (4.2-5.4); Red Cell Distribution Width 13.2 % (11.5-14.5); White Blood Count 6.4 K/mm3 (4.5-10.0)
[2024-02-29 13:52] LABS: Albumin Level 4.4 g/dL (3.5-5.1)
[2024-02-29 13:56] LABS: Anion Gap 6 mmol/L (4-12); Blood Urea Nitrogen 18 mg/dL (7-17); Calcium 9.4 mg/dL (8.4-10.2); Carbon Dioxide 27 mmol/L (22-30); Chloride 107 mmol/L (98-107); Estimated Glomerular Filt Rate 44; Glucose 93 mg/dL (65-110); Potassium 4.4 mmol/L (3.4-5.0); Sodium 140 mmol/L (137-145)
[2024-02-29 13:57] LABS: Partial Thromboplastin Time 25.4 Seconds (22.3-36.8)
[2024-02-29 14:00] LABS: Urine Cotinine NEGATIVE
[2024-02-29 14:22] LABS: Hemoglobin A1C 5.5 % (<5.7)
[2024-02-29 14:54] LABS: MRSA (PCR) NOT DETECTED (NOT DETECTE)
== END 2024-02-29 11:55 | disposition home or self-care (01) ==
LOC: ANHSURGERY 11:58
PROVIDERS: Anesthesiology; PCP Nurse Practitioner; Visit Provider Orthopaedic Surgery
DX: Z01.818 Encounter for other preprocedural examination (principal); N28.9 Disorder of kidney and ureter, unspecified; M17.11 Unilateral primary osteoarthritis, right knee
CPT/HCPCS: 36415; 80048; 80307; 82040; 83036; 85025; 85610; 85730; 87641

== ENCOUNTER 2024-03-19 11:47 | Outpatient (CLI) | payer OTHER, SELFPAY ==
[2024-03-19 12:32] LABS: Hematocrit 42.6 % (37.0-47.0); Mean Corpuscular HGB Conc 32.9 g/dl (32-36); Mean Corpuscular Hemoglobin 31.4 pg (26-34); Mean Corpuscular Volume 95.5 fl (80-100); Mean Platelet Volume 10.6 fl (7.4-10.4); Platelet Count Result 154 k/mm3 (150-375); Red Blood Count 4.46 M/mm3 (4.2-5.4); White Blood Count 6.1 K/mm3 (4.5-10.0)
[2024-03-19 12:40] LABS: Appearance Urine Clear (Clear); Bilirubin Urine Negative (Negative); Blood Urine Negative (Negative); Color Urine Yellow (Yellow); Glucose Urine UA 3+ mg/dL (Negative); Ketones Urine Negative (Negative); Leukocyte Esterase Ur Negative LEU/UL (Negative); Nitrate Urine Negative (Negative); Protein Urine Negative (Negative); Specific Grav Ur 1.025 (1.001-1.035); Urobilinogen Urine 0.2 mg/dL (<2.0); pH Urine 5.5 (5.0-9.0)
[2024-03-19 12:47] LABS: Add Urine Microscopic? NO; Total Protein Urine Random 13 mg/dL; Ur Ttl Prot Creatinine Ratio 0.07 mg/mg (0-0.20)
[2024-03-19 12:53] LABS: Albumin Level 4.3 g/dL (3.5-5.1); Anion Gap 9 mmol/L (4-12); Blood Urea Nitrogen 18 mg/dL (7-17); Calcium 9.3 mg/dL (8.4-10.2); Carbon Dioxide 25 mmol/L (22-30); Chloride 104 mmol/L (98-107); Creatine Kinase 113 U/L (30-135); Estimated Glomerular Filt Rate 44; Glucose 100 mg/dL (65-110); Phosphorus 3.7 mg/dL (2.5-4.5); Potassium 4.1 mmol/L (3.4-5.0); Sodium 138 mmol/L (137-145)
[2024-03-19 12:57] LABS: Parathyroid Intact 41.6 pg/mL (7.5-53.5)
[2024-03-19 13:10] LABS: Complement C3 115 mg/dL (88-165)
[2024-03-19 13:34] LABS: Erythrocyte Sedimentation Rate 11 mm/hr (0-20)
[2024-03-20 12:22] LABS: Kappa\\Lambda Light Chains 1.98 (0.26-1.65); Lambda Light Chain 10.9 mg/L (5.7-26.3)
[2024-03-21 15:13] LABS: Complement Total CH50 57 U/mL (31-60)
[2024-03-24 20:08] LABS: Immunofixation, Serum Normal pattern.
== END 2024-03-19 11:48 | disposition home or self-care (01) ==
LOC: ANHLAB 11:51
PROVIDERS: PCP Nurse Practitioner; Visit Provider Internal Medicine Nephrology
DX: D50.9 Iron deficiency anemia, unspecified (principal); N18.31 Chronic kidney disease, stage 3a
CPT/HCPCS: 36415; 80069; 81003; 82550; 82570; 83883; 83970; 84156; 85027; 85652; 86038; 86039; 86160; 86162; 86334

== ENCOUNTER 2024-03-21 07:32 | Outpatient (NON) | payer OTHER, SELFPAY ==
[2024-03-21 09:55] LABS: Total Volume 24 Hour Urine 2350 ml
[2024-03-22 13:14] LABS: Creat 24 Hr 1.13 g/24 h (0.50-2.15); Pro/Creat Ratio 106 mg/g creat (<150); Pro/Creat Ratio mg/mg 0.106 (<0.150); Protein,total, 24 Hr Ur 120 mg/24 h (<150)
[2024-03-27 16:02] LABS: Albumin 100 %
== END 2024-03-21 07:33 | disposition home or self-care (01) ==
PROVIDERS: PCP Nurse Practitioner; Visit Provider Internal Medicine Nephrology
DX: N18.31 Chronic kidney disease, stage 3a (principal)
CPT/HCPCS: 81050; 84540; 86335

== ENCOUNTER 2024-03-27 16:31 | Outpatient (CLI) | payer OTHER, SELFPAY ==
--- NOTE | ~2024-03-27 | US_ITS ---
EXAMINATION: US renal BI DATE: 03/27/2024 17:35 INDICATION: Stage IIIa chronic kidney disease TECHNIQUE: Multiple ultrasound grayscale images of the kidneys were obtained. COMPARISON: 11/18/2006 FINDINGS: The right kidney measures 10.5 x 3.8 x 6.0 cm. The left kidney measures 10.4 x 5.1 x 5.6 cm. The kidn eys demonstrate normal echogenicity. Mild right hydronephrosis. No left hydronephrosis. No stones id entified. The bladder is normal. A couple prominent left-sided and single week right-sided ureteral j et seen on color Doppler images. IMPRESSION: 1. Mild right hydronephrosis of indeterminate etiology. Correlate with urinalysis and would consider CT for further evaluation.. Reviewed, dictated and finalized at location A. IMPRESSION: 1. Mild right hydronephrosis of indeterminate etiology. Correlate with urinaly sis and would consider CT for further evaluation..
== END 2024-03-27 16:32 | disposition home or self-care (01) ==
PROVIDERS: PCP Internal Medicine; Visit Provider Internal Medicine Nephrology
DX: N13.30 Unspecified hydronephrosis (principal); N18.31 Chronic kidney disease, stage 3a
CPT/HCPCS: 76775

== ENCOUNTER 2024-04-03 01:06 | Day surgery (SDC) | payer OTHER, SELFPAY ==
[2024-02-29 12:13] VITALS: BP 100/59; PULSE 69; RESP 16; TEMP 36.7; O2SAT 97; BMI 26.7
--- NOTE | 2024-02-29 12:39 | PC.NURSE ---
Report to the Outpatient Waiting Room, entrance under the green pavilion located off [facility], at time ___8:30AM____ on date ___04/03/24____. Planned Procedure Time: __10:30AM . Time changes happen often and if your time is changed the preop area will call you the afternoon before. - You and your visitor will be asked to self-screen and do not enter if you have any COVID symptoms. - A mask is optional within the hospital at this time. Patients may have clear liquids (water, carbonated beverages, clear teas, apple juice) until 3 hours prior to surgery with a maximum of 20 ounces. - No food from midnight until time of surgery. Take the following medications with a SIP of water the morning of surgery: ____CARVEDILOL, FLUOXETINE, LEVOTHYROXINE DO NOT STOP ANY OF YOUR OTHER PRESCRIPTION MEDICATIONS PRIOR TO SURGERY ?EXCEPT THE FOLLOWING Medications to discontinue per physician ____HOLD ALL VITAMINS/SUPPLEMENTS 7 DAYS PRE-OP PER DR KILPATRICK Date to take last dose 03/26/24 Please no make-up, nail rwandan, hairspray, perfume, deodorant, or body powder the day of surgery. No jewelry (including any body piercings) or valuables the day of surgery, leave them at home. Please take a shower or bath the night before, or the morning of, surgery with an antibacterial soap. Wear comfortable, loose fitting clothing. - Jewelry must be removed prior to entering the operating room. Rings and piercings that are not removed may be cut off. - The hospital will not accept responsibility for valuables. - Please leave all valuables, including medications, at home the day of surgery. If you are going home after surgery, a licensed driver starting gate must drive you home. - NO public transportation without another adult if you receive anesthesia. - We recommend that an adult stay with you for 24 hours following discharge. - We also recommend that you do not drive, make important decision, drink alcoholic beverages, or take any drugs that were not prescribed by your health care provider for at least 24 hours after your discharge time. Follow any additional instructions given to you from your surgeon. If you or anyone in your household have experienced Covid symptoms in the past week, please notify your surgeon or the nurse liaison at the phone number below for possible testing. Telephone instructions given to ____PATIENT and asked if any additional questions and then verbalized understanding. Patient advised to call surgeon office or pre surgery nurse liaison [phone] if any additional questions.
[2024-04-03] VITALS (15 sets, daily range): BP systolic 90–118; BP diastolic 45–64; PULSE 43–81; RESP 12–18; TEMP 36.1–37.1; O2SAT 92–100
--- NOTE | ~2024-04-03 | XR_ITS ---
EXAMINATION: [id number]_[id number]_CR DATE: 04/03/2024 13:31 INDICATION: Right knee arthroplasty. Postop. TECHNIQUE: 2 views of right knee were obtained. COMPARISON: Right knee radiographs 01/11/2024 FINDINGS: There is a total right knee arthroplasty with patellar resurfacing in near-anatomic alignme nt. No fracture. There is gas in the knee joint and soft tissues, consistent with recent surgery. IMPRESSION: 1. Total right knee arthroplasty in near-anatomic alignment. Reviewed, dictated and finalized at location A.
--- NOTE | 2024-04-03 07:19 | WPDHPUPDATE1 ---
History and Physical Update Update Date/Time: 04/03/24 07:19 History and Physical has been reviewed, including an updated exam of the patient. There are NO changes in the patient's condition. Risks, benefits, and alternatives have been discussed and questions answered. Patient agrees to proceed with procedure.
[2024-04-03] MEDS: ACETAMINOPHEN 500 MG TABLET 1000 MG PO (08:50)
[2024-04-03] MEDS: LACTATED RINGERS 1,000 ML 30 ML IV CONT ×2 (09:30→13:12)
--- NOTE | 2024-04-03 09:44 | WPDANESEPPF ---
Anes - Initial Pre Proc Eval Procedure: Operation Date: 04/03/24 10:30 Proposed Procedures p Right Total Knee Arthroplasty - Obi Dee MD Date/Time: 04/03/24 09:44 Surgeon: Obi Dee MD Pre Op Diagnosis: primary oa right knee Patient Data Age: 78 Gender: F Height: 1.68 m Weight: 75.3 kg Last Vital Signs Temp 36.1 C L 04/03/24 09:19 Pulse 43 L 04/03/24 09:19 Resp 15 04/03/24 09:19 BP 92/62 L 04/03/24 09:19 Pulse Ox 96 04/03/24 09:19 O2 Del Method Room Air 04/03/24 09:19 Allergies Allergy/AdvReac Type Severity Reaction Status Date / Time iodine Allergy Mild Sneezing Verified 03/29/24 12:21 aspirin Allergy Unknown Wheezing Verified 03/29/24 12:21 Cephalosporins Allergy Unknown Other Verified 04/03/24 09:09 Penicillins Allergy Unknown Hives Verified 03/29/24 12:21 Home Medications Medication Instructions Recorded Confirmed Type sacubitril 24 mg-valsartan 26 mg 0.5 tablet PO BID 08/02/19 04/03/24 History tablet (Entresto) zinc 50 mg tablet 50 mg PO DAILY 01/15/21 04/03/24 History lifitegrast 5 % eye drops in a 1 drp EACH EYE .COMPLEX 04/20/21 04/03/24 History dropperette anastrozole 1 mg tablet 1 mg PO DAILY 07/14/22 04/03/24 History dapagliflozin propanediol 10 mg 10 mg PO DAILY 11/18/22 04/03/24 History tablet (Farxiga) fluoxetine 10 mg capsule 10 mg PO DAILY #90 caps 12/08/23 04/03/24 Rx levothyroxine 75 mcg tablet See Rx Instructions .Route 12/08/23 04/03/24 Rx .COMPLEX #90 tabs carvedilol 3.125 mg tablet 3.125 mg PO BID 02/29/24 04/03/24 History Patient hx anesthesia problems: none Family hx anesthesia problems: none Results Review: All pre-operative results and documents have been reviewed as part of the pre-operative evaluation. [facility] Past Medical History Medical History Bilateral knee pain Osteoarthritis of both knees Tendonitis of left rotator cuff Surgical History Surgical History History of colectomy (~2018) History of lumpectomy (~2020) History of right knee surgery (~10/29/22) Arthroscopic partial lateral meniscectomy, right knee. Family History Family History Mother Family history of kidney disease Family history of diabetes mellitus in first degree relative Diabetes mellitus Family history of obesity Sibling Family history of kidney disease Father Family history of lung cancer Cerebrovascular accident Social History Social History Smoking status: Never smoker Second hand tobacco smoke exposure: Yes Alcohol intake: current Drinks per week: 4 Substance use: never Substance use type: does not use Do You Feel Safe in your Home?: Yes Lack of Transportation: No Lack of Food: Never True Current Housing: I Have Housing Concerned About Future Housing: No Difficulty Paying Gas/Electric Bills: No Difficulty Paying for Meds: No Currently Unemployed: No Education: High School Diploma/GED Difficulty w/ Childcare or Family Care: No Living arrangements: with family Additional living arrangements comments: SPOUSE AND DAUGHTER Gender identity (if verbalized by the patient): Female Spiritual care concerns: No Anes - Eval Final PreProcedure Day of Procedure 04/03/24 09:44 Patient weight: overweight Heart: regular rate and rhythm Lungs: clear to auscultation Airway: Mallampati scale class II Neurological: alert and oriented Last oral intake: >/= 8 hours ASA classification: III Emergent: no Anesthetic plan: proceed Anesthesia type and monitoring: general LMA and standard monitoring Results Review: All pre-operative results and documents have been reviewed as part of the pre-operative evaluation. Informed Consent: The patient's anesthetic plan an
[2024-04-03] MEDS: VANCOMYCIN 1,250 MG/NS 250 ML BAG 166.67 MG IVPB (10:15)
[2024-04-03] MEDS: TRANEXAMIC ACID 1,000MG/ISO100 1,000 MG/100 ML BAG 200 MG IVPB (10:16)
[2024-04-03] MEDS: SODIUM CHLORIDE 0.9% IV 38.7 ML, MORPHINE SULFATE INJ (*CRX) 2 MG, ROPivacaine HCL 1% 2... INFILTRATE (10:28)
[2024-04-03] MEDS: GENTAMICIN BONE CEMENT REFOBACIN 1 EACH TOPICAL (12:23)
--- NOTE | 2024-04-03 13:48 | W.PM.PROC2 ---
Procedure Note - Detailed Date of Procedure 04/03/24 Pre-op Diagnosis Severe right knee arthritis, primarily patellofemoral. Post-op Diagnosis Same Procedure Performed Right total knee arthroplasty. Surgeon Obi Dee MD Plumbing Designer Emma Thorpe PA-C Anesthesia General Findings Severe patellofemoral arthritis with moderate lateral disease. Partial PCL release. Anatomic slope and varus valgus angulation approximately 3?. Kinematically aligned Medacta GMK sphere. Medial stabilized component. Lateral condyle worn. Resection thickness 6 mm. Medial thickness unworn with resection thickness 8 mm. Standard posterior 7 mm resections. Initial tibia cut with 7 mm thick medial and 8 mm thick lateral. Additional 2 degree varus cutting block utilized. Final stability check demonstrated negligible varus valgus laxity in extension. 2-3 mm of lateral opening with varus load in 20? of flexion. Unrestricted lateral mobility in flexion. Description of Procedure Preoperative vancomycin was given due to Ancef allergy. General anesthetic was administered. The knee was prepped and draped in the usual sterile fashion. Tourniquet was placed high on the thigh. The limb was exsanguinated and the tourniquet inflated to 300 mmHg during the procedure. Longitudinal incision created and a trivector approach to the knee performed. No initial releases. The patella was measured and cut for resurfacing. The size 2 component fit optimally. The alignment jonelle was placed in the distal femur. The worn paddle was used for the lateral compartment after removing the partially intact cartilage. The medial cartilage was intact. Resection created for the 9 mm implant thickness. The posterior referencing guide was utilized after for the 8 mm posterior implant thickness. The chamfer AP and chamfer cuts were taken. quality assurance technician measurements were performed to ensure the appropriate resections were completed. Attention was turned to the tibia. Partial release of the PCL off of the proximal tibia. The external alignment jig was placed and an anatomic resection was taken to match the anatomic varus valgus, rotation and slope of the tibia. After checking the extension block an additional 2 mm varus cut was taken. Flexion and extension gap balance was optimal with a rectangular extension gap and a trapezoidal flexion gap. The tibia was thus prepared and the trials assembled. Balance and sizing were confirmed for the 11 mm polyethylene. The bony surfaces were prepared and the real implants cemented. The tourniquet was released. Meticulous hemostasis was maintained. The wound was closed with interrupted 1. Vicryl suture followed by 1. Stratafix suture. Subcutaneous tissue similarly closed with interrupted suture followed by running Stratafix suture 2-0 and 3-0. Steri-Strips and sterile dressing applied. Patient extubated and brought to the recovery room in stable condition. Estimated blood loss 50 mL. The pain relieving cocktail was injected early on in the procedure. Implants Medacta. GMK sphere KA. Femur size 4+, tibia T3i4. Flex insert thickness 11 mm. Patella size 2. Estimated Blood Loss 50 Drains No Packing No Pathology None sent Complications No immediate complications Condition Stable Disposition PACU [facility] Billing Surgery - Charge Forward: Surgery Billing
--- NOTE | 2024-04-03 14:15 | SUR.PHASEI ---
Patient meets PACU discharge criteria, unit bed unavailable at this time. Patient placed in extended recovery status.
[2024-04-03] MEDS: fentaNYL CITRATE INJ (*CRX) 100 MCG/2 ML VIAL 25 MCG IV PUSH (14:34)
[2024-04-03] MEDS: ACETAMINOPHEN 325 MG TABLET 650 MG PO ×3 (15:35→23:27)
[2024-04-03] MEDS: SODIUM CHLORIDE 0.9% IV 1,000 ML 125 ML IV CONT (15:35)
[2024-04-03] MEDS: SENNA/DOCUSATE SODIUM TABLET 2 TAB PO (17:32)
[2024-04-03] MEDS: predniSONE 5 MG TABLET PO (17:32)
[2024-04-03] MEDS: MELOXICAM 7.5 MG TABLET PO (17:34)
[2024-04-03] MEDS: carvediloL 3.125 MG TABLET PO (21:10)
[2024-04-03] MEDS: FAMOTIDINE 20 MG TABLET PO (21:10)
[2024-04-03] MEDS: SACUBITRIL/VALSARTAN 12-13 MG TABLET 1 TAB PO (21:10)
[2024-04-03] MEDS: ENOXAPARIN 30 MG/0.3 ML SYRINGE SUB-Q (21:11)
[2024-04-03] MEDS: VANCOMYCIN 1,000 MG/NS 250 ML 1,000 MG/250 ML BAG 250 MG IVPB (21:11)
[2024-04-04 04:34] VITALS: BP 109/53; PULSE 60; RESP 18; TEMP 36.7; O2SAT 95
[2024-04-04] MEDS: LEVOTHYROXINE SODIUM 75 MCG TABLET PO (05:38)
[2024-04-04] MEDS: ACETAMINOPHEN 325 MG TABLET 650 MG PO ×2 (05:38→12:01)
[2024-04-04 05:59] LABS: Basophils Percent Auto 0.1 % (0.2-1.2); Hematocrit 35.5 % (37.0-47.0); Hemoglobin 11.7 g/dL (12.0-15.0); Immature Granulocyte Absolute 0.04 K/mm3 (0.00-0.031); Immature Granulocyte Percent A 0.4 % (0-0.5); Immature Platelet Fraction Pct 5.2 % (0.9-11.2); Lymphocytes Absolute Auto 0.76 K/mm3 (0.9-3.2); Lymphocytes Percent Auto 7.5 % (18.3-44.2); Mean Corpuscular Hemoglobin 31.6 pg (26-34); Mean Corpuscular Volume 95.9 fl (80-100); Mean Platelet Volume 10.8 fl (7.4-10.4); Monocytes Absolute Auto 0.9 K/mm3 (0.1-0.6); Monocytes Percent Auto 8.9 % (2.6-8.5); Neutrophils Absolute Auto 8.5 K/mm3 (1.3-6.7); Neutrophils Percent Auto 83.1 % (45.5-73.1); Platelet Count Result 129 k/mm3 (150-375); Red Cell Distribution Width 12.9 % (11.5-14.5); White Blood Count 10.2 K/mm3 (4.5-10.0)
[2024-04-04 06:09] LABS: Anion Gap 9 mmol/L (4-12); Blood Urea Nitrogen 21 mg/dL (7-17); Calcium 8.3 mg/dL (8.4-10.2); Carbon Dioxide 24 mmol/L (22-30); Chloride 101 mmol/L (98-107); Estimated CRCL calculation 36 ml/min; Estimated Glomerular Filt Rate 48; Glucose 132 mg/dL (65-110); Potassium 3.9 mmol/L (3.4-5.0); Sodium 134 mmol/L (137-145)
[2024-04-04] MEDS: FLUoxetine HCL 10 MG CAPSULE PO (08:07)
[2024-04-04] MEDS: ANASTROZOLE (*CHEMO) 1 MG TABLET PO (08:07)
[2024-04-04] MEDS: SENNA/DOCUSATE SODIUM TABLET 2 TAB PO (08:07)
[2024-04-04 08:08] VITALS: PULSE 60
[2024-04-04] MEDS: carvediloL 3.125 MG TABLET PO (08:08)
[2024-04-04] MEDS: polyethylene glycoL 3350 17 GM POWD.PACK PO (08:08)
[2024-04-04] MEDS: ENOXAPARIN 30 MG/0.3 ML SYRINGE SUB-Q (08:08)
[2024-04-04] MEDS: SACUBITRIL/VALSARTAN 12-13 MG TABLET 1 TAB PO (08:08)
[2024-04-04] MEDS: EMPAGLIFLOZIN 10 MG TABLET BY MOUTH (08:08)
[2024-04-04] MEDS: MELOXICAM 7.5 MG TABLET PO (08:08)
[2024-04-04] MEDS: FAMOTIDINE 20 MG TABLET PO (08:08)
[2024-04-04 09:31] VITALS: BP 98/44; PULSE 60; RESP 19; TEMP 36.2; O2SAT 98
[2024-04-04 10:08] VITALS: O2SAT 96
[2024-04-04] MEDS: VANCOMYCIN 1,000 MG/NS 250 ML 1,000 MG/250 ML BAG 250 MG IVPB (10:10)
--- NOTE | 2024-04-04 11:20 | PM.DS ---
DS: Admitting Diagnosis Discharge Date 04/04/24 Admitting Diagnosis Knee arthritis. DS: Discharge Diagnosis Discharge Diagnosis (1) Status post total right knee replacement: Code(s): Z96.651 - Presence of right artificial knee joint Status: Acute Assessment and Plan: Postop day 1: Right total knee arthroplasty. Patient tolerated procedure well. No complications. Pain manageable with pain medication. No numbness or tingling. Patient was worried about kidney function. Slight improvement since last blood tests. We had a lengthy discussion regarding postoperative wound care, limitations, expectations, and exercises. Patient shows good understanding. She has had initial physical therapy and is tolerating it well. DVT prophylaxis: Lovenox. Pain medication: Percocet. Prednisone. Meloxicam as needed (okayed by kidney specialist). Patient has followup appointment with Dr. Dee in 3 weeks. DS: Summary Hospital Course Reason for hospitalization: Total knee arthroplasty Hospital Course: Patient tolerated procedure well. Has had initial PT/OT. Status at Discharge Functional status at discharge: uses cane/walker Overall status at discharge: patient is progressing back to baseline Time Spent with Patient Time attestation: Total time spent providing and/or coordinating discharge services: Exam Narrative: 78-year-old female. Resting comfortably in chair. Alert and oriented x3. No acute distress. Wearing compression socks bilaterally. Dressing intact without drainage. Mild swelling. No ecchymosis. No erythema. No hematoma. Range of motion limited due to pain. Calf nontender. Fires quad. Neurologic status intact. No varicosities. Distal pulses palpable. DS: Data Data Completed and Pending Labs on day of discharge: Labs from last 24 hours 04/04/24 05:38 WBC 10.2 H RBC 3.70 L Hgb 11.7 L Hct 35.5 L MCV 95.9 MCH 31.6 MCHC 33.0 RDW 12.9 Plt Count 129 L MPV 10.8 H Immature Gran % (Auto) 0.4 Neut % (Auto) 83.1 H Lymph % (Auto) 7.5 L [place] % (Auto) 8.9 H Eos % (Auto) 0.0 Baso % (Auto) 0.1 L Lymph # (Auto) 0.76 L [place] # (Auto) 0.9 H Eos # (Auto) 0.0 Baso # (Auto) 0.0 Abs Immat Gran (auto) 0.04 H Absolute Neuts (auto) 8.5 H Absolute Nucleated RBC 0.000 Nucleated RBC % 0.0 % Immature Plt Fraction 5.2 Sodium 134 L Potassium 3.9 Chloride 101 Carbon Dioxide 24 Anion Gap 9 BUN 21 H Creatinine 1.10 H Estim Creat Clear Calc 36 Estimated GFR 48 L Glucose 132 H Calcium 8.3 L Discharge Plan Discharge Patient Disposition: Home, Self-Care Discharge Instructions: See green instruction sheets Stand Alone Forms: General Discharge Instructions Follow-up/Referrals: Emma Thorpe PA [Physician Prep Room Supervisor] - Discharge Medications: New meloxicam 15 mg tablet 15 mg PO DAILY Qty: 30 0RF Rx Instructions: Cut in half. Take 1/2 in morning and 1/2 at night. Take with food. Stop if stomach upset. oxycodone-acetaminophen 5-325 mg tablet 1 - 2 tablet PO Q4-6H MDD 6 PRN (Reason: pain) Qty: 30 0RF prednisone 5 mg tablet 5 mg PO DAILY 21 Days Qty: 21 0RF enoxaparin [Lovenox] 30 mg/0.3 mL syringe 30 mg subcut Q12H 10 Days Qty: 6 0RF Continued zinc 50 mg tablet 50 mg PO DAILY lifitegrast 5 % dropperette 1 drp EACH EYE .COMPLEX Rx Instructions: 1 drp EACH EYE PRN; administer approximately 12 hours apart anastrozole 1 mg tablet 1 mg PO DAILY Farxiga 10 mg tablet 10 mg PO DAILY carvedilol 3.125 mg tablet 3.125 mg PO BID Entresto 24-26 mg tablet 0.5 tablet PO BID fluoxetine 10 mg capsule 10 mg PO DAILY Qty: 90 1RF Rx Instructions: QAM levothyroxine 75 mcg tablet See Rx Instructions .ROUTE .COMPLEX Qty: 90 1RF Dose Instruction: TAKE 1 TABLET BY MOUTH EVERY DAY Rx Instructions: TAKE 1 TABLET BY MOUTH EVERY DAY IN AM
--- NOTE | 2024-04-04 11:36 | P.PNAN_ITS ---
Anes - Prog Note Post-Op Date/Time: 04/04/24 11:36 Cardiovascular status: normal Respiratory status: normal Airway patency: baseline Mental status: baseline Post-Op hydration status: normal Vital Signs: Last Vital Signs Temp 36.2 C L 04/04/24 09:31 Pulse 60 04/04/24 09:31 Resp 19 04/04/24 09:31 BP 98/44 L 04/04/24 09:31 Pulse Ox 96 04/04/24 10:08 O2 Del Method Room Air 04/04/24 10:08 O2 Flow Rate 8 04/03/24 13:25 Pain Score (VAS): 0 I/O: Intake & Output 04/03/24 04/04/24 04/04/24 23:59 07:59 15:59 Intake Total 930 240 510 Balance 930 240 510 Laboratory Tests 04/04/24 05:38 04/04/24 05:38 04/04/24 05:38 WBC 10.2 H RBC 3.70 L Hgb 11.7 L Hct 35.5 L MCV 95.9 MCH 31.6 MCHC 33.0 RDW 12.9 Plt Count 129 L MPV 10.8 H Immature Gran % (Auto) 0.4 Neut % (Auto) 83.1 H Lymph % (Auto) 7.5 L [place] % (Auto) 8.9 H Eos % (Auto) 0.0 Baso % (Auto) 0.1 L Lymph # (Auto) 0.76 L [place] # (Auto) 0.9 H Eos # (Auto) 0.0 Baso # (Auto) 0.0 Abs Immat Gran (auto) 0.04 H Absolute Neuts (auto) 8.5 H Absolute Nucleated RBC 0.000 Nucleated RBC % 0.0 % Immature Plt Fraction 5.2 Sodium 134 L Potassium 3.9 Chloride 101 Carbon Dioxide 24 Anion Gap 9 BUN 21 H Creatinine 1.10 H Estim Creat Clear Calc 36 Estimated GFR 48 L Glucose 132 H Calcium 8.3 L Post-procedural complaints: none Patient Feedback: Patient satisfied with anesthetic care.
[2024-04-04] MEDS: oxyCODONE/ACETAMINOPHEN (*CRX) 5-325 MG TABLET 1 TABLET PO (12:01)
--- NOTE | 2024-04-04 13:18 | PCPTNOTE ---
On 04/04/24, the student, [Mi Pelletier] provided care and completed [facility] documentation on this patient. I have reviewed the student's documentation and agree with the findings.
== END 2024-04-04 12:32 | disposition home or self-care (01) ==
LOC: ANHSURGERY 10:26 → ANH3MED 14:51
PROVIDERS: Physician Assistant Surgical; PCP Internal Medicine; Visit Provider Orthopaedic Surgery
PROC: (CPT 27447; principal; 2024-04-03 10:30)
DX: M17.11 Unilateral primary osteoarthritis, right knee (principal); Z79.84 Long term (current) use of oral hypoglycemic drugs; Z90.49 Acquired absence of other specified parts of digestive tract
CPT/HCPCS: 27447; 36415; 73560; 80048; 85025; 85055; 86850; 86900; 86901; 97110; 97161; 97165; 97530; A9270; C1713; J0171; J1100; J1596; J1650; J2270; J2371; J2405; J2704; J2795; J3010; J3370; J7030; J7120; J7512

== ENCOUNTER 2024-05-21 11:36 | Outpatient (CLI) | payer OTHER, SELFPAY ==
--- NOTE | ~2024-05-21 | XR_ITS ---
Right Knee Technique: AP, lateral, and sunrise views were obtained. Clinical History: Arthroplasty follow-up Findings: No fracture or dislocation is seen. Right knee arthroplasty in place, without evidence of c omplication.. Soft tissues are unremarkable. No joint effusion is seen. Impression: No acute abnormality. Right knee arthroplasty. Reviewed, dictated and finalized at location . Impression: No acute abnormality. Right knee arthroplasty.
== END 2024-05-21 11:37 | disposition home or self-care (01) ==
LOC: ANHIMG 11:38
PROVIDERS: PCP Internal Medicine; Visit Provider Orthopaedic Surgery
DX: Z96.651 Presence of right artificial knee joint (principal); Z09 Encounter for follow-up examination after completed treatment for conditions other than malignant neoplasm
CPT/HCPCS: 73562

== ENCOUNTER 2024-06-07 13:04 | Outpatient (CLI) | payer OTHER, SELFPAY ==
--- NOTE | ~2024-06-07 | NM_ITS ---
EXAMINATION: JUANCHO lai renal scan DATE: 06/07/2024 14:18 INDICATION: Chronic kidney disease, stage IIIa. Mild right hydronephrosis. TECHNIQUE: 7.5 mCi Tc-99m MAG3 was administered IV. The patient was scanned in the supine position. A posterior abdominal radionuclide angiogram was obtained. A subsequent time course of static images of the kidneys, ureters, and bladder was obtained. COMPARISON: CT abdomen and pelvis 11/13/2015, ultrasound 03/27/24 FINDINGS: The posterior abdominal radionuclide angiogram and sequential static images show normal siz e, position, and morphology of the kidneys. Peak renal parenchymal uptake was 7 min in right kidney a nd 3 min in left kidney (normal peak 3-5 minutes). The relative early renal uptake was 44% on the ri ght and 57% on the left (<40% is abnormal). No abnormalities of the ureters or bladder are seen. T1/2 for clearance of activity from the right kidney and proximal collecting system was 19 minutes. T1/2 for clearance of activity from the left kidney and proximal collecting system was 11 minutes. IMPRESSION: 1. Symmetric kidney function. 2. Delayed clearance of contrast from right kidney and proximal collecting system, consistent with p artial obstruction that is likely clinically significant. Decreased kidney function decreases specifi city. Reviewed, dictated and finalized at location A. IMPRESSION: 1. Symmetric kidney function. 2. Delayed clearance of contrast from right kidney and proximal collecting sys [facility], consistent with partial obstruction that is likely clinically significant. Decreased kidney function decreases specificity.
== END 2024-06-07 13:05 | disposition home or self-care (01) ==
PROVIDERS: PCP Internal Medicine; Visit Provider Internal Medicine Nephrology
DX: N18.31 Chronic kidney disease, stage 3a (principal); R93.89 Abnormal findings on diagnostic imaging of other specified body structures
CPT/HCPCS: 78708; A9562; J1940

== ENCOUNTER 2024-07-31 14:18 | Outpatient (CLI) | payer OTHER, SELFPAY ==
--- NOTE | ~2024-07-31 | XR_ITS ---
Right Knee Technique: AP, lateral, and sunrise views were obtained. Clinical History: Arthroplasty Findings: No fracture or dislocation is seen. Right knee arthroplasty in place, without evidence of h ardware complication. Soft tissues are unremarkable. No joint effusion is seen. Impression: No acute abnormality. Right knee arthroplasty in place. Reviewed, dictated and finalized at location M. MILL MANAGER Impression: No acute abnormality. Right knee arthroplasty in place.
== END 2024-07-31 14:19 | disposition home or self-care (01) ==
PROVIDERS: PCP Internal Medicine; Visit Provider Orthopaedic Surgery
DX: Z96.651 Presence of right artificial knee joint (principal)
CPT/HCPCS: 73562

== ENCOUNTER 2024-08-23 10:31 | Outpatient (CLI) | payer OTHER, SELFPAY ==
--- NOTE | ~2024-08-23 | DEXA_ITS ---
Bone Density Report Name: UZAIR NOVOA Age: 78 Sex: Female Ethnicity: White Date of : 1945 Indication: postmenopausal; screening for osteoporosis; height loss; cancer; Referring Provider: NENICKI Study: Bone densitometry was performed. Exam Date: August 23, 2024 Accession number: [id number] Bone Density: Region BMD T-score Z-score Classification AP Spine(L1-L4) 1.100 0.5 3.0 Normal Femoral Neck (Left) 0.810 -0.4 1.8 Normal Total Hip (Left) 1.021 0.6 2.5 Normal Femoral Neck (Right) 0.699 -1.4 0.8 Osteopenia Total Hip (Right) 0.937 0.0 1.8 Normal Total Hip Mean 0.979 0.3 2.2 Normal World Health Organization criteria for BMD impression classify patients as: Normal (T-score at or above -1.0), Osteopenia (T-score between -1.0 and -2.5), or Osteoporosis (T-score at or below -2.5). 10-year Fracture Risk(1): Major Osteoporotic Fracture 12% Hip Fracture 2.2% Reported Risk Factors: [place] (), Neck BMD=0.699, BMI=26.4 (1) FRAX(R) Version 3.08. Fracture probability calculated for an untreated patient. Fracture probability may be lower if the patient has received treatment. Previous Exams: Region Exam Age BMD T-score BMD Change BMD Change Date g/cm2 vs Baseline vs Previous AP Spine (L1-L4) 08/23/2024 78 1.100 0.5 0.064 (6.2%)* -0.004 (-0.3%) 08/16/2023 77 1.104 0.5 0.068 (6.6%)* 0.045 (4.2%)* 03/22/2022 76 1.059 0.1 0.024 (2.3%)* 0.024 (2.3%)* 02/25/2021 75 1.036 -0.1 0.000 (0.0%) 0.000 (0.0%) 01/27/2019 73 1.036 -0.1 Total Hip(Left) 08/23/2024 78 1.021 0.6 0.077 (8.2%)* 0.057 (5.9%)* 08/16/2023 77 0.964 0.2 0.020 (2.2%) 0.011 (1.2%) 03/22/2022 76 0.953 0.1 0.009 (1.0%) 0.003 (0.4%) 02/25/2021 75 0.950 0.1 0.006 (0.6%) 0.006 (0.6%) 01/27/2019 73 0.944 0.0 Total Hip(Right) 08/23/2024 78 0.937 0.0 0.044 (5.0%)* 0.082 (9.6%)* 08/16/2023 77 0.855 -0.7 -0.038 (-4.3%) -0.017 (-2.0%) 03/22/2022 76 0.872 -0.6 -0.021 (-2.3%) 0.027 (3.2%) 02/25/2021 75 0.845 -0.8 -0.048 (-5.4%) -0.048 (-5.4%) 01/27/2019 73 0.893 -0.4 *Denotes significance at 95% confidence level, LSC for AP Spine = 0.022 g/cm2, LSC for Total Hip = 0.027 g/cm2 Clinical Information Provided by Patient: Has the following medical conditions: Cancer Patient maximum height was 68 Menopause Age: 54 No regular weight bearing exercise Drinks caffeinated beverages Onset of menses at age 14 Number of children 1 Impression: The patient has low bone mass, based on the Right Femoral Neck T-score. The patient has an estimated ten-year risk of hip fracture of 2.2% and an estimated ten-year risk of major fracture of 12%, based on the WHO FRAX algorithm. No significant bone loss was observed. Discussion: BONE DENSITY IS LOW AT ONE OR MORE SKELETAL SITES. This patient's lowest T-score is low at one or more skeletal sites. It meets the World Health Organization's (WHO) criteria for ?low bone mass? (T-score between -1.0 and -2.5). The patient's 10-year risk of fracture as calculated by FRAX is less than the threshold where pharmacological therapy is recommended by the National Osteoporosis Foundation (NOF). However, all treatment decisions require clinical judgment and consideration of individual patient factors, including patient preferences, comorbidities, previous drug use, risk factors not captured in the FRAX model (e.g., frailty, falls, vitamin D deficiency, increased bone turnover, interval significant decline in bone density) and possible under or overestimation of fracture risk by FRAX. The patient should follow a healthful lifestyle (good nutrition with adequate calcium and vitamin D, and appropriate weight-bearing exercise). Follow-Up: Consider repeating this study in 2 to 3 years to reassess this patient's status, or sooner if there is some new clinical indication. Reported by: DEEPAK on 08/23/2024 11:26:00 AM. Reviewed, dictated and finalized at location A.
== END 2024-08-23 10:32 | disposition home or self-care (01) ==
PROVIDERS: PCP Internal Medicine; Visit Provider Internal Medicine Medical Oncology
DX: M85.851 Other specified disorders of bone density and structure, right thigh (principal); Z79.811 Long term (current) use 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 inhibitors; Z85.3 Personal history of malignant neoplasm of breast
CPT/HCPCS: 77080

== ENCOUNTER 2024-09-17 11:44 | Outpatient (CLI) | payer OTHER, SELFPAY ==
[2024-09-17 12:24] LABS: Hematocrit 45.3 % (37.0-47.0); Hemoglobin 14.7 g/dL (12.0-15.0); Mean Corpuscular HGB Conc 32.5 g/dl (32-36); Mean Corpuscular Hemoglobin 30.4 pg (26-34); Mean Corpuscular Volume 93.8 fl (80-100); Mean Platelet Volume 10.6 fl (7.4-10.4); Platelet Count Result 173 k/mm3 (150-375); Red Blood Count 4.83 M/mm3 (4.2-5.4); Red Cell Distribution Width 13.4 % (11.5-14.5); White Blood Count 6.4 K/mm3 (4.5-10.0)
[2024-09-17 12:42] LABS: Albumin Level 4.4 g/dL (3.5-5.1); Anion Gap 10 mmol/L (4-12); Blood Urea Nitrogen 18 mg/dL (7-17); Calcium 9.8 mg/dL (8.4-10.2); Carbon Dioxide 24 mmol/L (22-30); Chloride 105 mmol/L (98-107); Estimated Glomerular Filt Rate 44; Glucose 98 mg/dL (65-110); Phosphorus 4.4 mg/dL (2.5-4.5); Potassium 4.4 mmol/L (3.4-5.0); Sodium 139 mmol/L (137-145)
[2024-09-17 12:53] LABS: Parathyroid Intact 38.7 pg/mL (14.5-75.2)
[2024-09-17 15:38] LABS: Creatinine Urine 85.9 mg/dL; Total Protein Urine Random 14 mg/dL; Ur Ttl Prot Creatinine Ratio 0.16 mg/mg (0-0.20)
== END 2024-09-17 11:45 | disposition home or self-care (01) ==
LOC: ANHLAB 11:45
PROVIDERS: PCP Internal Medicine; Visit Provider Internal Medicine Nephrology
DX: D50.9 Iron deficiency anemia, unspecified (principal); N18.31 Chronic kidney disease, stage 3a
CPT/HCPCS: 36415; 80069; 82570; 83970; 84156; 85027

== ENCOUNTER 2025-02-11 14:50 | Outpatient (CLI) | payer OTHER, SELFPAY ==
[2025-02-11 15:33] LABS: Hematocrit 43.4 % (37.0-47.0); Mean Corpuscular HGB Conc 32.3 g/dl (32-36); Mean Corpuscular Hemoglobin 30.4 pg (26-34); Mean Corpuscular Volume 94.3 fl (80-100); Mean Platelet Volume 10.3 fl (7.4-10.4); Platelet Count Result 152 k/mm3 (150-375); Red Cell Distribution Width 13.3 % (11.5-14.5); White Blood Count 6.1 K/mm3 (4.5-10.0)
[2025-02-11 15:48] LABS: Cholesterol 185 mg/dL (0-200); HDL Direct 95 mg/dL; Triglycerides 135 mg/dL (<150)
[2025-02-11 15:50] LABS: Creatinine Urine 99.5 mg/dL; Total Protein Urine Random 11 mg/dL; Ur Ttl Prot Creatinine Ratio 0.11 mg/mg (0-0.20)
[2025-02-11 15:51] LABS: Albumin Level 4.3 g/dL (3.5-5.1); Anion Gap 8 mmol/L (4-12); Blood Urea Nitrogen 18 mg/dL (7-17); Calcium 9.2 mg/dL (8.4-10.2); Carbon Dioxide 24 mmol/L (22-30); Chloride 106 mmol/L (98-107); Estimated Glomerular Filt Rate 39; Glucose 85 mg/dL (65-110); Phosphorus 3.9 mg/dL (2.5-4.5); Potassium 3.9 mmol/L (3.4-5.0); Sodium 138 mmol/L (137-145)
[2025-02-11 15:59] LABS: LDL Cholesterol Direct 64 mg/dL
--- OUTSIDE RECORDS SUMMARY | 2025-02-11 15:59 | XMS_ITS | Encounter Summary ---
Author Organization [facility] Address [address] [place] [address] Phone Care Team Providers Care Residential Leasing Agent Name Role Phone Kailee Ferguson MD Unavailable Lucrecia Kaur MD PhD Unavailable [phone] Taylor Luke MD Unavailable [phone] Alma Akers PhD Unavailable [phone] Brandon Haddad DO Primary Care Provider [phone] Encounter Details Date Type Department Care Team (Latest Contact Info) Description 08/23/2024 Orders Only [facility] Scanning, Provider Social History Tobacco Use Types Packs/Day Years Used Date Smoking Tobacco: Never Smokeless Tobacco: Never Alcohol Use Standard Drinks/Week Comments Yes 2 (1 standard drink = 0.6 oz pur e alcohol) AUDIT-C Answer Date Recorded Q1: How often do you have a drink containing alc ohol? 2-3 times a week 01/05/2024 Average Number of Drinks Not on file 024 Frequency of Binge Drinking Not on file 04/2024 Personal Safety Answer Date Recorded Have you ever been in or are you currently in a harmful physical or emotional relationship or is someone making you feel afraid or unsafe? 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 Gender Identity Female 12/09/2020 7:19 AM CDT Sexual Orientation Not on file documented as of this encounter Plan of Treatment Scheduled Procedures Name Priority Associated Diagnoses Date/Ti me COLONOSCOPY Open Access Primary malignant neoplasm of colon (HCC) documented as of this encounter Procedures Procedure Name Priority Date/Time Associated Diagnosis Comments SCAN - RADIOLOGY/IMAGING 08/23/2024 documented in this encounter Results * SCAN - RADIOLOGY/IMAGING (08/23/2024) Anatomical Region Laterality Modality Other us Provider Scanning Final Result documented in this encounter Visit Diagnoses Not on filedocumented in this encounter Care Teams Residential Leasing Agent Relationship Specialty Start Date End Date Brandon Haddad DO [address] [place], [place] [id number] PCP - General Internal Medicine 05/11/24 Kailee Ferguson MD [address] [place], [place] [id number] Medical Oncologist/Round Cutter Operator Medical Oncology 01/30/19 Lucrecia Kaur MD PhD [address] [place], [place] [id number] Radiation Oncologist Radiation Oncology 08/04/21 Taylor Luke MD [address] [place] [address] Surgeon Surgical Oncology 05/05/22 Alma Akers, PhD [address] [place] [address] Nurse Practitioner Radiation Oncology 05/05/22 documented as of this encounter
--- OUTSIDE RECORDS SUMMARY | 2025-02-11 15:59 | XMS_ITS ---
Author Organization [facility] Address [address] [place], [place] [id number] Care Team Providers Care Human Resources Trainee Name Role Phone DENNYS ESTEVEZ Unavailable [phone] Brandon Haddad Unavailable Unavailable REASON FOR VISIT *General care Encounters Encounter Location Date Provider Diagnosis [facility] [address] [facility] [address] [place], [place] [id number] 10/18/2024 DENNYS ESTEVEZ Plan Of Treatment Next Appt Details Provider Name:DENNYS HIGHTOWER, 03/21/2025 12:50:00 PM, [address], [place], [place], [phone], Progress Notes * UZAIR NOVOA EDOB: [birth year] (79 yo F)Acc No.[id number]:10/18/2024 Patient: UZAIR GONZALEZ Provider: Brittnee Estevez DPM :1945 A ge:78 Y S ex:Female Date:10/18/2024 Address:[address] [place], [place] [id number] Subjective: * Chief Complaints: * 1 . *General care. * Medical History: Objective: * Vitals: Assessment: Plan: * Treatment: * Billing Information: * Visit Code: * Procedure Codes: * Electronic signature of DENNYS ESTEVEZ DPM on 02/11/2025 at 03:58 PM CDT Sign off status: Pending * Provider: Brittnee Estevez DPM Date: 0 10/18/2024 Generated for Doris ocasio/Annmarie/Rachel on: 0 02/11/2025 03:58 PM CDT
--- OUTSIDE RECORDS SUMMARY | 2025-02-11 15:59 | XMS_ITS ---
Author Organization [facility] Address [address] [place] [address] Care Team Providers Care Bioinformatics Specialist Name Role Phone Kailee Ferguson MD Unavailable Lucrecia Kaur MD PhD Unavailable [phone] Taylor Luke MD Unavailable [phone] Alma Akers PhD Unavailable Brandon Haddad DO Primary Care Provider [phone] Active Problems Problem Noted Date Diagnosed Date Malignant neoplasm of colon 12/13/2023 COVID 03/11/2022 COVID-19 03/11/2022 H/O colon cancer, stage IV 03/09/2022 Encounter for follow-up exam ination after completed treatment for malignant neoplasm 09/17/2021 Personal history of irradiation 09/17/2021 Osteopenia 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 current use 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 inhibitor Personal history of malignant neoplasm of breast 07/20/2021 Bone disorder 07/20/2021 Malignant neoplasm of upper- outer quadrant of left breast in female, estrogen receptor positive 05/10/2021 Cancer Staging:Pathologic stage from 07/28/2021:Stage IA(pT1b, pN0(sn), cM0, G2, ER+, MS+, HER2-) - Signed by Graeme Edwards MD PhD on 07/28/2021 Abnormal mammogram 04/17/2021 Dilated cardiomyopathy 03/11/2021 PVC's (premature ventricular contractions) 12/30 Adenocarcinoma of colon metastatic to liver 10/27 Overview (11/07/2020): Added automatically from request for surgery [id number] Non-rheumatic mitral regurgitation 02/16/2020 NÚÑEZ (dyspnea on exertion) 04/11/2018 Metastasis to liver 01/17/2018 Drug-induced neutropenia 01/17/2018 Anemia 10/30/2017 Thrombocytopenia 10/30/2017 Dehydration 06/20/2017 Candidiasis of mouth 06/20/2017 Primary malignant neoplasm of colon 07/01/2016 Overview (12/02/2016): Colon cancer metastasized to multiple sites Diarrhea 02/12/2016 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 (congestive heart failure) 09/08/2015 Overview (12/02/2016): Chronic systolic CHF (congestive heart failure) Hypotension due to drugs 12/10/2013 Overview (12/01/2016): Hypotension Pure hypercholesterolemia 08/28/2012 Overview (12/03/2016): PURE HYPERCHOLESTEROLEM Current Treatment and Therapy Plans denosumab (PROLIA) Injection* Plan Start Date:12/06/2024 Plan Provider:Kailee Ferguson MD Linked Problems Malignant neoplasm of upper- outer quadrant of left breast in female, estrogen receptor positive (HCC)USP current use 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 inhibitorLow bone mass Treatment Medications No medications scheduled. Past Treatment and Therapy Plans Oncology Chemotherapy Treatment Plan Name Start Date Discontinue Date Treatment Medications Discontinue Reason Plan Provider Cycles Irinotecan/Amy stin 14 Day Cycles - Colon/Rectal 018 01/08/2019 bevacizumab (AVASTIN)bevacizum ab (AVASTIN) IVPBIRINOtecan (CAMPTOSAR)IRINOte can (CAMPTOSAR) IVPB in 250 mL Stable Disease Kailee Ferguson MD 2 of 6 cycles completed Fluorouracil / Leucovorin / Bevacizumab 14 Day Cycles - Colon/Rectum 01/18/20 18 07/06/2018 bevacizumab (AVASTIN)bevacizum ab (AVASTIN) IVPBfluorouracil (ADRUCIL)fluoroura cil (ADRUCIL) infusion - for home infusion (ADRUCIL)leucovori nleucovorin IVPB in 250 mL Progression Kailee Ferguson MD 25 of 28 cycles started Oncology Supportive Care Therapy Plan Plan Name Start Date Discontinue Date Treatment Medications Discontinue Reason Plan Provider IV MAINTENANCE THERAPY PLAN 02/01/2018 11/08/2023 No medications scheduled. Automatic discontinuation of dormant plans Kailee Ferguson MD Radiation Treatments (No Episode) * Course [id number]_Breast_202008/13/2021 - 08/19/2021 Treatment Period Energy Fraction Dose Fractions Total Dose Plans Planned APBI L BREAST 08/13/2021 - 08/19/2021 600 5 / 3,000 Reference Points Delivered LT BREAST APBI 08/13/2021 - 08/19/2021 3,000 Lifetime Dose Tracking * Chemical Lifetime Dose Automatic Entry Manual Entr y Fluoro Time 0.1 minutes 0.1 minutes 0 minutes DLP 4,490 mGycm 4,490 mGycm 0 mGycm Resolved Problems Problem Noted Date Diagnosed Date Resolved Date Chronic diastolic CHF (conge stive heart failure) 12/30/2020 03/21/2023 Hypercholesterolemia 07/01/2016 017 Overview (12/02/2016): Hypercholesteremia Primary cardiomyopathy 08/28/201203/21 Overview (12/01/2016): PRIM CARDIOMYOPATHY NEC
--- OUTSIDE RECORDS SUMMARY | 2025-02-11 15:59 | XMS_ITS | Encounter Summary ---
Author Organization [facility] Address [address] [place] [address] Phone Care Team Providers Care Billet Heater Operator Name Role Phone Kailee Ferguson MD Unavailable Lucrecia Kaur MD PhD Unavailable [phone] Taylor Luke MD Unavailable [phone] Alma Akers PhD Unavailable [phone] Reji Duffy MD Primary Care Provider [phone] Brandon Haddad DO Primary Care Provider [phone] Encounter Details Date Type Department Care Team (Latest Contact Info) Description 08/16/2023 Orders Only [facility] Scanning, Provider Social History Tobacco Use Types Packs/Day Years Used Date Smoking Tobacco: Never Smokeless Tobacco: Never Alcohol Use Standard Drinks/Week Comments Yes 2 (1 standard drink = 0.6 oz pur e alcohol) AUDIT-C Answer Date Recorded Q1: How often do you have a drink containing alc ohol? 2-4 times a month 06/10/2021 Average Number of Drinks Not on file 021 Frequency of Binge Drinking Not on file 05/29 Comments No Sex and Gender Information Value Date Recorded Sex Assigned at Not on file Legal Sex Female 9:28 PM RECEPTIONIST/TELEPHONE OPERATOR Gender Identity Female 12/09/2020 7:19 AM CDT Sexual Orientation Not on file documented as of this encounter Plan of Treatment Scheduled Procedures Name Priority Associated Diagnoses Date/Ti me COLONOSCOPY Open Access Primary malignant neoplasm of colon (HCC) documented as of this encounter Procedures Procedure Name Priority Date/Time Associated Diagnosis Comments SCAN - RADIOLOGY/IMAGING 08/16/2023 documented in this encounter Results * SCAN - RADIOLOGY/IMAGING (08/16/2023) Anatomical Region Laterality Modality Other Provider Scanning Final Result documented in this encounter Visit Diagnoses Not on filedocumented in this encounter Care Teams Billet Heater Operator Relationship Specialty Start Date End Date Reji Duffy MD [address] [place], [place] [id number] PCP - General Internal Medicine 09/09/22 05/10/24 Brandon Haddad DO [address] [place] [address] PCP - General Internal Medicine 05/11/24 Kailee Ferguson MD [address] [place] [address] [address] [place] [address] Medical Oncologist/Director Content Marketing Medical Oncology 01/30/19 Lucrecia Kaur MD PhD [address] [place] [address] [address] [place] [address] Radiation Oncologist Radiation Oncology 08/04/21 Taylor Luke MD [address] [place] [address] [address] [place] [address] Surgeon Surgical Oncology 05/05/22 Alma Akers, PhD [address] [place] [address] [address] [place] [address] Nurse Practitioner Radiation Oncology 05/05/22 documented as of this encounter
--- OUTSIDE RECORDS SUMMARY | 2025-02-11 15:59 | XMS_ITS | Encounter Summary ---
Author Organization [facility] Address [address] [place] [address] Phone Care Team Providers Care Flatwork Tier Name Role Phone Paulie Alexandra MD Primary Care Provider [phone] Kailee Ferguson MD Unavailable Lucrecia Kaur MD PhD Unavailable [phone] Taylor Luke MD Unavailable [phone] Alma Akers PhD Unavailable [phone] Reji Duffy MD Primary Care Provider [phone] Brandon Haddad DO Primary Care Provider [phone] Encounter Details Date Type Department Care Team (Latest Contact Info) Description 03/22/2022 Orders Only [facility] Scanning, Provider Social History Tobacco Use [...] on file 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 Gender Identity Female 12/09/2020 7:19 AM CDT Sexual Orientation Not on file documented as of this encounter Plan of Treatment Scheduled Procedures Name Priority Associated Diagnoses Date/Ti me COLONOSCOPY Open Access Primary malignant neoplasm of colon (HCC) documented as of this encounter Procedures Procedure Name Priority Date/Time Associated Diagnosis Comments SCAN - RADIOLOGY/IMAGING 03/22/2022 documented in this encounter Results * SCAN - RADIOLOGY/IMAGING (03/22/2022) Anatomical Region Laterality Modality Other Provider Scanning Final Result documented in this encounter Visit Diagnoses Not on filedocumented in this encounter Care Teams Flatwork Tier Relationship Specialty Start Date End Date Paulie Alexandra MD [address] [facility] [address] [place] [address] PCP - General 09/03/17 09/08/22 Reji Duffy MD [address] [place] [address] PCP - General Internal Medicine 09/09/22 05/10/24 Brandon Haddad DO [address] [place] [address] PCP - General Internal Medicine 05/11/24 Kailee Ferguson MD [address] [place], [place] [id number] Medical Oncologist/Financial Services Representative Medical Oncology 01/30/19 Lucrecia Kaur MD PhD [address] [place], [place] [phone] Radiation Oncologist Radiation Oncology 08/04/21 Taylor Luke MD [address] [place], [place] [id number] Surgeon Surgical Oncology 05/05/22 Alma Akers, PhD [address] [facility] [address] [place] [address] Nurse Practitioner Radiation Oncology 05/05/22 documented as of this encounter
--- OUTSIDE RECORDS SUMMARY | 2025-02-11 15:59 | XMS_ITS | Encounter Summary ---
Author Organization [facility] Address [address] [place] [address] Care Team Providers Care Product Marketing Consultant Name Role Phone Paulie Alexandra MD Primary Care Provider [phone] Kailee Ferguson MD Unavailable Lucrecia Kaur MD PhD Unavailable [phone] Taylor Luke MD Unavailable [phone] Alma Akers PhD Unavailable [phone] Reji Duffy MD Primary Care Provider [phone] Brandon Haddad DO Primary Care Provider [phone] Encounter Details Date Type Department Care Team (Late st Contact Info) Description 01/28/2021 Telephone [facility] - [facility] [address] [place] [address] Transcribed Order, Provider Social History Tobacco Use Types Packs/Day Years Used Date Smoking Tobacco: Never Smokeless Tobacco: Never Alcohol Use Standard Drinks/Week Comments Yes 2 (1 standard drink = 0.6 oz pur e alcohol) AUDIT-C Answer Date Recorded Q1: How often do you have a drink containing alcohol? 4 or more times a week 12/04/2020 Q2: How many drinks containi ng alcohol do you have on a typical day when you are drinking? 1 or 2 Q3: How often do you have si x or more drinks on one occasion? 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 Gender Identity Female 12/09/2020 7:19 AM CDT Sexual Orientation Not on file documented as of this encounter Plan of Treatment Scheduled Procedures Name Priority Associated Diagnoses Date/Ti me COLONOSCOPY Open Access Primary malignant neoplasm of colon (HCC) documented as of this encounter Visit Diagnoses Not on filedocumented in this encounter Care Teams Product Marketing Consultant Relationship Specialty Start Date End Date Paulie Alexandra MD [address] [place] [address] PCP - General 09/03/17 09/08/22 Reji Duffy MD [address] [place] [address] PCP - General Internal Medicine 09/09/22 05/10/24 Brandon Haddad DO [address] [place] [address] PCP - General Internal Medicine 05/11/24 Kailee Ferguson MD [address] [place] [address] Medical Oncologist/Ply Bander Medical Oncology 01/30/19 Lucrecia Kaur MD PhD [address] [place] [address] Radiation Oncologist Radiation Oncology 08/04/21 Taylor Luke MD [address] [place] [address] Surgeon Surgical Oncology 05/05/22 lAma Akers, PhD [address] [place] [address] Nurse Practitioner Radiation Oncology 05/05/22 documented as of this encounter
--- OUTSIDE RECORDS SUMMARY | 2025-02-11 15:59 | XMS_ITS | Patient Health Record ---
Author Organization [facility] Address [address] [place], [place] [address] Care Team Providers Care Business Education Instructor Name Role Phone DENNYS WOODALL Unavailable [phone] Brandon Haddad Unavailable Unavailable Allergies Allergen (clinical drug ingredient) Drug/Non Drug Allergy documented on EMR Reaction Allergy Type Onset Date Status aspirin Aspirin Unknown Drug Allergy 08/27/2020 active Substance with penicillin structure and antibacterial mechanism of action (substance) Penicillins Unknown Drug Allergy 08/27/2020 active Reason For Referral Reason ESSENCE REFERRAL ( L EVEL 3 ) [id number] Diagnosis 1 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 672) Diagnosis 4 Posterior tibial ten dinitis of left lower extremity (M76.822) Diagnosis 5 Pain in right toe(s) (M79.674) Referring Provider First Name Brandon Referring Provider Last Name Catie Referred Organization [facility] Referred Provider DENNYS WOODALL Referred Address [address],[place], [id number], Referred Provider Specialty Podiatry Referral Priority Routine Medications Medication SIG (Take, Route, Frequency, Duration) Notes Start Date End Date Status FLUoxetine HCl 10 MG Oral for 90 Days Active Gentamicin Sulfate 0.3 % Ophthalmic for 12 Days Active Enoxaparin Sodium 30 MG/0.3ML Injection for 10 Days Active Carvedilol 3.125 MG Oral for 90 Days Active Anastrozole 1 MG Oral for 90 Days Active Xiidra 5 % Ophthalmic for 30 Days Active Clindamycin HCl 300 MG Oral for 1 Days Active Farxiga 10 MG Oral for 30 Days Active Entresto 24-26 MG Oral for 30 Days Active Levothyroxine Sodium 75 MCG Oral for 90 Days Active Immunizations Vaccine Route Administration Date Status Comme nts Tdap Unknown 03/30/2010 Administered Pneumococcal conjugate PCV 13 Unknown 09/09/2023 Refuse d Influenza, high-dose seasona l, quadrivalent, preservative free >65 yrs Unknown 06/22/2020 Administered Influenza, high dose seasonal Unknown 05/17/2023 Admini stered Influenza, high dose seasonal Unknown 07/05/2024 Admini stered Vital Signs Height-cm 152.40 cm 01/17/2025 Weight-kg 77.11 kg 01/17/2025 Height 60.00 in 01/17/2025 Weight 170 lbs 01/17/2025 BMI 33.2 kg/m2 01/17/2025 Encounters Encounter Location Date Provider Diagnosis [facility] [address] [place] [id number] 05/17/2024 DENNYS WOODALL Fungal infection of nail B35.1 ; Posterior tibial tendinitis of left lower extremity M76.822 ; Unspecified atherosclerosis of cahto arteries of extremities, bilateral legs I70.203 ; Pain in right toe(s) M79.674 and Left foot pain M79.672 [facility] [address] [place] [address] [id number] 08/02/2024 DENNYS WOODALL Fungal infection of nail B35.1 ; Posterior tibial tendinitis of left lower extremity M76.822 ; Unspecified atherosclerosis of cahto arteries of extremities, bilateral legs I70.203 ; Pain in right toe(s) M79.674 and Left foot pain M79.672 [facility] [address] [place] [address] [id number] 11/08/2024 DENNYSRENETTA WOODALL Fungal infection of nail B35.1 ; Posterior tibial tendinitis of left lower extremity M76.822 ; Unspecified atherosclerosis of cahto arteries of extremities, bilateral legs I70.203 ; Pain in right toe(s) M79.674 and Left foot pain M79.672 [facility] [address] [place] [address] [id number] 01/17/2025 DENNYS LEBLANCCAMPBELL Fungal infection of nail B35.1 ; Posterior tibial tendinitis of left lower extremity M76.822 ; Unspecified atherosclerosis of cahto arteries of extremities, bilateral legs I70.203 ; Pain in right toe(s) M79.674 and Left foot pain M79.672 Assessments Encounter Date Diagnosis (ICD Code) Assessment Notes Treatment Notes Treatment Clinical Notes Section Notes 05/17/2024 Fungal infection of nail (ICD-10 - B35.1) Nails 1-5 Bilateral were debrided extensively with nail nippers and emery board, reducing length and girth to pink healthy tissue with any subungual debris and necrotic tissue removed 08/02/2024 Fungal infection of nail (ICD-10 - B35.1) Nails 1-5 Bilateral were debrided extensively with nail nippers and emery board, reducing length and girth to pink healthy tissue with any subungual debris and necrotic tissue removed 11/08/2024 Fungal infection of nail (ICD-10 - B35.1) Nails 1-5 Bilateral were debrided extensively with nail nippers and emery board, reducing length and girth to pink healthy tissue with any subungual debris and necrotic tissue removed 01/17/2025 Fungal infection of nail (ICD-10 - B35.1) Nails 1-5 Bilateral were debrided extensively with nail nippers and emery board, reducing length and girth to pink healthy tissue with any subungual debris and necrotic tissue removed 11/08/2024 Posterior tibial tendinitis of left lower extremity (ICD-10 - M76.822) 08/02/2024 Posterior tibial tendinitis of left lower extremity (ICD-10 - M76.822) 01/17/2025 Posterior tibial tendinitis of left lower extremity (ICD-10 - M76.822) 05/17/2024 Posterior tibial tendinitis of left lower extremity (ICD-10 - M76.822) 05/17/2024 Unspecified atherosclerosis of cahto arteries of extremities, bilateral legs (ICD-10 - I70.203) 08/02/2024 Unspecified atherosclerosis of cahto arteries of extremities, bilateral legs (ICD-10 - I70.203) 11/08/2024 Unspecified atherosclerosis of cahto arteries of extremities, bilateral legs (ICD-10 - I70.203) 01/17/2025 Unspecified atherosclerosis of cahto arteries of extremities, bilateral legs (ICD-10 - I70.203) 01/17/2025 Pain in right toe(s) (ICD-10 - M79.674) 11/08/2024 Pain in right toe(s) (ICD-10 - M79.674) 08/02/2024 Pain in right toe(s) (ICD-10 - M79.674) 05/17/2024 Pain in right toe(s) (ICD-10 - M79.674) 05/17/2024 Left foot pain (ICD-10 - M79.672) 08/02/2024 Left foot pain (ICD-10 - M79.672) 11/08/2024 Left foot pain (ICD-10 - M79.672) 01/17/2025 Left foot pain (ICD-10 - M79.672) Plan Of Treatment Next Appt Details Provider Name:DENNYS HIGHTOWER, 03/21/2025 12:50:00 PM, [address], [place], [place], [id number], Insurance Providers Payer Name Payer Address Payer Phone Subscriber Number Group Number Insured Name Patient Relationship to Insured Coverage Start Date Coverage End Date [employer]. [address] [place] [id number] UZAIR NOVOA Self - patient is the insured
--- OUTSIDE RECORDS SUMMARY | 2025-02-11 15:59 | XMS_ITS | Encounter Summary ---
Author Organization [facility] Address [address] [place] [address] Phone Care Team Providers Care Vehicle Window Tinter Name Role Phone Paulie Alexandra MD Primary Care Provider [phone] Kailee Ferguson MD Unavailable Lucrecia Kaur MD PhD Unavailable [phone] Taylor Luke MD Unavailable [phone] Alma Akers PhD Unavailable [phone] Reji Duffy MD Primary Care Provider [phone] Brandon Haddad DO Primary Care Provider [phone] Encounter Details Date Type Department Care Team (Latest Contact Info) Description 07/09/2021 Orders Only [facility] Scanning, Provider Social [...] on file 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 Gender Identity Female 12/09/2020 7:19 AM CDT Sexual Orientation Not on file documented as of this encounter Plan of Treatment Scheduled Procedures Name Priority Associated Diagnoses Date/Ti me COLONOSCOPY Open Access Primary malignant neoplasm of colon (HCC) documented as of this encounter Procedures Procedure Name Priority Date/Time Associated Diagnosis Comments SCAN - RADIOLOGY/IMAGING 07/09/2021 documented in this encounter Results * SCAN - RADIOLOGY/IMAGING (07/09/2021) Anatomical Region Laterality Modality Other Provider Scanning Final Result documented in this encounter Visit Diagnoses Not on filedocumented in this encounter Care Teams Vehicle Window Tinter Relationship Specialty Start Date End Date Paulie Alexandra MD [address] [facility] [address] [place] [address] PCP - General 09/03/17 09/08/22 Reji Duffy MD [address] [place] [address] PCP - General Internal Medicine 09/09/22 05/10/24 Brandon Haddad DO [address] [place] [address] PCP - General Internal Medicine 05/11/24 Kailee Ferguson MD [address] [place], [place] [id number] Medical Oncologist/Programming Coordinator Medical Oncology 01/30/19 Lucrecia Kaur MD PhD [address] [place], [place] [id number] Radiation Oncologist Radiation Oncology 08/04/21 Taylor Luke MD [address] [place], [place] [id number] Surgeon Surgical Oncology 05/05/22 Alma Akers, PhD [address] [place] [address] Nurse Practitioner Radiation Oncology 05/05/22 documented as of this encounter
--- OUTSIDE RECORDS SUMMARY | 2025-02-11 15:59 | XMS_ITS | Clinical Summary ---
Author Organization [facility] Address [address] [place] [address] Care Team Providers Care Film Library Clerk Name Role Phone Kailee Ferguson MD Unavailable Lucrecia Kaur MD PhD Unavailable [phone] Taylor Luke MD Unavailable [phone] Alma Akers PhD Unavailable [phone] Brandon Haddad DO Primary Care Provider [phone] Allergies Active Allergy Reactions Criticality Noted Date Comments Aspirin Wheezing Medium Cephalexin Unknown Molecularly similar to penicillin Cephalosporins Hives,Other (See comments) Medium 01/27/2024 Iodinated Contrast Media Sneezing Low 04/22/2022 Penicillins Hives Medium Medications zinc 50 mg tablet Take 50 mg by mouth every morning Active Xiidra 5 % dropperette Take 0.1 each (1 drop total) by mouth 2 (two) times a day 1 Active levothyroxine (SYNTHROID) 75 mcg tablet Take 1 tablet (75 mcg total) by mouth daily 1 Active FLUoxetine 10 mg capsule Take 1 tablet/capsu le (10 mg total) by mouth daily 3 Active sacubitriL-valsarta n (Entresto) 24-26 mg tablet TAKE 0.5 TABLETS BY MOUTH 2 TIMES A DAY. 90 tablet 1 5 Active anastrozole (ARIMIDEX) 1 mg tablet TAKE 1 TABLET BY MOUTH EVERY DAY 90 tablet 2 5 Active dapagliflozin propanediol (Farxiga) 10 mg tablet Take 1 tablet (10 mg total) by mouth daily 90 tablet 3 5 Active carvediloL (COREG) 3.125 mg tabletIndications:D ilated cardiomyopathy (HCC),Chronic combined systolic and diastolic CHF (congestive heart failure) (HCC) Take 1 tablet (3.125 mg total) by mouth 2 (two) times a day with meals 180 tablet 5 Active Active Problems Problem Noted Date Diagnosed Date Malignant neoplasm of colon 12/13/2023 COVID 03/11/2022 COVID-19 03/11/2022 H/O colon cancer, stage IV 03/09/2022 Encounter for follow-up exam ination after completed treatment for malignant neoplasm 09/17/2021 Personal history of irradiation 09/17/2021 Osteopenia 07/20/2021 skilled nursing current use 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 inhibitor Personal history of malignant neoplasm of breast 07/20/2021 Bone disorder 07/20/2021 Malignant neoplasm of upper- outer quadrant of left breast in female, estrogen receptor positive 05/10/2021 Cancer Staging:Pathologic stage from 07/28/2021:Stage IA(pT1b, pN0(sn), cM0, G2, ER+, FL+, HER2-) - Signed by Graeme Edwards MD PhD on 07/28/2021 Abnormal mammogram 04/17/2021 Dilated cardiomyopathy 03/11/2021 PVC's (premature ventricular contractions) 12/30 Adenocarcinoma of colon metastatic to liver 10/27 Overview (11/07/2020): Added automatically from request for surgery [id number] Non-rheumatic mitral regurgitation 02/16/2020 NÚÑEZ (dyspnea on [...] Pure hypercholesterolemia 08/28/2012 Overview (12/03/2016): PURE HYPERCHOLESTEROLEM Resolved Problems Problem Noted Date Diagnosed Date Resolved Date Chronic diastolic CHF (conge stive heart failure) 12/30/2020 03/21/2023 Hypercholesterolemia 07/01/2016 017 Overview (12/02/2016): Hypercholesteremia Primary cardiomyopathy 08/28/201203/21 Overview (12/01/2016): PRIM CARDIOMYOPATHY NEC Encounters Date Type Department Care Team Description 01/30/2025 1:00 PM CDT Office Visit [facility] Radiation Oncology at [facility] [address] [place] [address] Xenia Pop PA Malignant neoplasm of upper-outer quadrant of left breast in female, estrogen receptor positive (HCC) (Primary Dx) 01/30/2025 10:53 AM CDT - 01/30/2025 11:59 PM CDT Hospital Encounter [facility] [place] [address] Screening mammogram, encounter for Discharge Disposition: Discharge to home or self care 01/11/2025 Telephone [facility] Cardiology [address] [place] [address] Umang Weathers MD 12/24/2024 Orders Only [facility] Scanning, Provider 12/20/2024 Telephone [facility] Oncology [address] [place] [phone] Jose Esquivel 12/20/2024 Orders Only [facility] Oncology [address] [place] [address] Cely Ojeda MD 12/06/2024 1:00 PM CDT Infusion [address] [address] skilled nursing current use 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 inhibitor (Primary Dx); Primary malignant neoplasm of colon (HCC); Malignant neoplasm of upper-outer quadrant of left breast in female, estrogen receptor positive (HCC); Low bone mass 11/29/2024 3:00 PM CDT Office Visit [facility] Oncology [address] [place] [phone] Kailee Ferguson MD Primary malignant neoplasm of colon (HCC) (Primary Dx); Malignant neoplasm of upper-outer quadrant of left breast in female, estrogen receptor positive (HCC) 11/29/2024 2:15 PM CDT Lab [address] [address] Primary malignant neoplasm of colon (HCC); Malignant neoplasm of upper-outer quadrant of left breast in female, estrogen receptor positive (HCC) 11/29/2024 10:57 AM CDT - 11/29/2024 11:59 PM CDT Hospital Encounter [facility] Radiology at [facility] [address] [place] [address] Primary malignant neoplasm of colon (HCC) Discharge Disposition: Discharge to home or self care 11/29/2024 10:56 AM CDT - 11/29/2024 11:59 PM CDT Hospital Encounter [facility] Radiology at [address] [address] Primary malignant neoplasm of colon (HCC) Discharge Disposition: Discharge to home or self care 11/13/2024 11:15 AM CDT Office Visit [facility] [address] [place] [address] Umang Weathers MD Dilated cardiomyopathy (HCC) (Primary Dx) from Last 3 Months Immunizations Immunization Administration Dates Next Due Influenza, Quadrivalent, Hig h Dose, Preservative Free, Intrr 06/22/2020 Tdap 03/30/2010 Surgical History Surgery Date Site/Laterality Comments BIOPSY LYMPH NODE SUPERFICIAL 12/19/2015 N/A PORT PLACEMENT CHEST >5 YEARS 12/19/2015 N/A CHOLECYSTECTOMY CARDIAC CATHETERIZATION 08/29/2011 - 08/28/2012 KNEE SURGERY 08/29/1980 - 08/28/1981 Right RIGHT COLECTOMY 09/05/2018 CARDIAC CATHETERIZATION BREAST BIOPSY 04/21/2021 Left IDC CATARACT EXTRACTION EXTRACAP SULAR W/ INTRAOCULAR LENS IMPLANTATION 08/29/2012 - 08/28/2013 Bilateral KNEE ARTHROSCOPY Right BREAST LUMPECTOMY 08/29/2020 - 08/28/2021 Left SMALL INTESTINE SURGERY August 2017 PORT REMOVAL 12/06/2023 N/A CATARACT EXTRACTION 2012 Medical History Medical History Date Comments Hx Other Medical Hydronephrosis and ureteral stent Colorectal cancer (HCC) 2015 liver me tastasis, lymph metastasis s/p chemotherapy Thyroid disease Asthma Hypotension Hyperlipidemia Ischemic colitis 07/2017 Cardiomyopathy (HCC) Anemia CHF (congestive heart failure) (HCC) History of chemotherapy [id number]. colon ca ncer History of blood transfusion 08/2018 Breast cancer (HCC) 2020 radiation Arthritis Heart disease Family History Medical History Relation Name Comments Cancer Brother Jerzy Cruz Cancer Father Paulino Cruz Lung cancer Father Paulino Cruz Stroke Father Paulino Cruz Leukemia Father's Sister Diabetes Mother Padmini Cruz Diabetes stephanie litus; Cause of : Diabetes mellitus Vision loss Mother Padmini Cruz Heart condition Mother's Sister 1 Other Mother's Sister 2 AFIB; Caus e of : AFIB Breast cancer Other maternal first cousin and maternal second cousin Anesthesia problems Neg Hx Relation Name Status Comments Brother Jerzy Cruz Father Paulino Cruz Father's Sister Mother Padmini Cruz (Age 64) Mother's Sister 1 (Age 70) Mother's Sister 2 Other Social History Tobacco Use Types Packs/Day Years Used Date Smoking Tobacco: Never Smokeless Tobacco: Never Tobacco Cessation:Counseling Given: Not Answered Alcohol Use Standard Drinks/Week Comments Yes 2 [...] on file Legal 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 Gender Identity Female 12/09/2020 7:19 AM CDT Sexual Orientation Not on file Obstetrics History Last Filed Vital Signs Vital Sign Reading Time Taken Comments Blood Pressure 97/67 12/06/2024 1:12 PM CDT Pulse 78 12/06/2024 1:12 PM CDT Temperature 36.7 C (98 F) 11/29/2024 2:52 PM CDT Respiratory Rate 16 12/06/2024 1:12 PM CDT Oxygen Saturation 94% 12/06/2024 1:12 PM CDT Inhaled Oxygen Concentration - - Weight 75.4 kg (166 lb 4.8 oz) 01/30/2025 12:45 PM CDT Height 170.2 cm (5' 7) 01/30/2025 10:58 AM CDT Body Mass Index 26.05 01/30/2025 10:58 AM CDT Plan of Treatment Scheduled Procedures Name Priority Associated Diagnoses Date/Ti me COLONOSCOPY Open Access Primary malignant neoplasm of colon (HCC) Health Maintenance Due Date Last Done Comments Depression Screening 1945 Hepatitis C Screening 1945 Hepatitis B Screening 10/31/1965 Pneumococcal vaccine 65+ (1 of 2 - PCV) 10/31/1966 Zoster Vaccine (1 of 2) 10/31/1966 Well Visit 65+ 10/31/2012 DTaP/Tdap/Td Vaccine (2 - Td or Tdap) 03/30/2020 03/30/2010 Fall Risk Assessment 01/04/2025 01/05/2024 Influenza Vaccine (Season Ended) 2025 06/22/20 Osteoporosis Screening-Bone Density Scan 05/25/2026 05/25/2024 Colon Cancer Screening-CT Colonography Discontinued 01/05/2024, 12/04/2020, 12/11/2015 Colon Cancer Screening-Colonoscopy Discontinued 01/05/2024, 12/04/2020, 12/11/2015 Colon Cancer Screening-DNA Stool Discontinued 01/05/2024, 12/04/2020, 12/11/2015 Colon Cancer Screening-FIT Discontinued 01/04, 12/04/2020, 11/23/2016, Additional history exists Colon Cancer Screening-FOBT Discontinued 04/2024, 12/04/2020, 11/23/2016, Additional history exists Colon Cancer Screening-Sigmoidoscopy Discontinued 01/05/2024, 12/04/2020, 12/11/2015 Colorectal Cancer Screening Discontinued Breast Cancer Screening-Mammogram Discontinued 01/30/2025, 01/27/2024, 01/18/2023, Additional history exists Medical Devices Implanted Type Area Verification Engineer Device Identifier Shelf Expiration Date Model / Serial / Lot Port- 6 Implanted: (Quantity not on file) Right: Chest Wall [employer] [id number] Magseed 18ga 7cm Marker Breast Biopsy - [id number] Implanted:Qty : 1 on 05/20/2021 at [facility] Left: Breast [employer] [id number] 12/26/2024 [id number] Procedures Procedure Name Priority Date/Time Associated Diagnosis Comments SCREENING MAMMOGRAM BILATERAL W ZHOU Schedule Routine, Read Routine (OP Routine) 01/30/2025 11:05 AM CDT Screening mammogram, encounter for SCAN - PATHOLOGY 12/24/2024 9:25 AM CDT MISCELLANEOUS LAB ORDER Routine 12/20/2024 8:38 AM CDT PHOSPHORUS Routine 11/29/2024 3:50 PM CDT Primary malignant neoplasm of colon (HCC) Malignant neoplasm of upper-outer quadrant of left breast in female, estrogen receptor positive (HCC) EGFR Routine 11/29/2024 1:37 PM CDT Primary malignant neoplasm of colon (HCC) DIFFERENTIAL AUTO Routine 11/29/2024 1:3 7 PM CDT Primary malignant neoplasm of colon (HCC) CBC WITH AUTO DIFFERENTIAL Routine 11/29/2024 1:37 PM CDT Primary malignant neoplasm of colon (HCC) CEA Routine 11/29/2024 1:37 PM CDT Primary malignant neoplasm of colon (HCC) COMPREHENSIVE METABOLIC PANEL Routine 11/29/2024 1:37 PM CDT Primary malignant neoplasm of colon (HCC) MRI ABDOMEN/PELVIS W WO CONTRAST Schedule CONSTANTINO, Read CONSTANTINO (Appt Today, Awaiting Results) 11/29/2024 12:32 PM CDT Primary malignant neoplasm of colon (HCC) CT CHEST WO CONTRAST Schedule CONSTANTINO, Read CONSTANTINO (Appt Today, Awaiting Results) 11/29/2024 11:21 AM CDT Primary malignant neoplasm of colon (HCC) DEXA AXIAL SKELETON BONE DENSITY 1 OR MORE SITES Schedule Routine, Read Routine (OP Routine) 05/25/2024 12:21 PM CDT COLONOSCOPY 01/05/2024 1:14 PM CDT from Last 3 Months or Most Recently Relevant to Health Maintenance Results * Screening Mammogram Bilateral W Zhou (01/30/2025 11:05 AM CDT) Anatomical Region Laterality Modality Breast Bilateral Mammography Impressions 01/31/2025 11:09 AM CDT Bilateral No evidence of malignancy in either breast. OVERALL BI-RADS FINAL ASSESSMENT: 1 - Negative RECOMMENDATION: Recommend bilateral annual screening mammography. Narrative 01/31/2025 11:09 AM CDT EXAMINATION: Screening Mammogram Bilateral W Zhou: 01/30/2025 COMPARISON: Relevant prior studies available at the time of interpretation were reviewed. TECHNIQUE: Mammography was performed with 2D and digital breast tomosynthesis (DBT) images. CAD was utilized. BREAST PARENCHYMAL COMPOSITION: There are scattered areas of fibroglandular density. FINDINGS: Bilateral There is no suspicious mass, calcification, or architectural distortion in either breast. us Self Screening Mammogram IMG MAMMO PROCEDURES Fi nal Result * SCAN - PATHOLOGY (12/24/2024 9:25 AM CDT) us Provider Scanning Final Result * Miscellaneous Lab Order (12/20/2024 8:38 AM CDT) Cely Ojeda MD LAB BLOOD ORDERABLES Marcie l Result EXTERNAL LAB * Phosphorus (11/29/2024 3:50 PM CDT) Phosphorus, pl 3.6 2.3 - 4.5 mg/dL Comment:Testing performed by : [facility], [address] [place] [address] Blood 11/29/2024 3:50 PM CDT 11/29/2024 3:55 PM CDT Kailee Ferguson MD LAB BLOOD ORDERABLES Final Resul t [facility] Department [place] [address] * (ABNORMAL) eGFR (11/29/2024 1:37 PM CDT) eGFR 44(L) >=60 mL/min/1. 73 m2 Comment: Interpretive Data Reference Interval Normal >/= 90 mL/min/1.73m2 Mildly decreased* 60 - 89 mL/min/1.73m2 Mildly to moderately decreased 45 - 59 mL/min/1.73m2 Moderately to severely decreased 30 - 44 mL/min/1.73m2 Severely decreased 15 - 29 mL/min/1.73m2 Kidney Failure < 15 mL/min/1.73m2 *Relative to young adult level Estimated glomerular filtration rate is determined by the 2020 CKD-EPI equation recommended by the National Kidney Foundation (A Unifying Approach to GFR Estimation: Recommendations of the NKF-ASK Task Force on Reassessing the Inclusion of Race in Diagnosing Kidney Disease, JASN 202). The CKD-EPI equation should not be used for patients with unstable renal function and has not been validated in children and those over 70. Current interpretive data was last reviewed 2021. Blood 11/29/2024 1:37 PM CDT 11/29/2024 1:37 PM CDT us Kailee Ferguson MD LAB BLOOD ORDERABLES Final Resul t [facility] [place] [address] * Differential, auto (11/29/2024 1:37 PM CDT) Neutrophil abs 3.40 1.50 - 6.50 K/cumm Comment:Testing performed by : [facility], [address] [facility] [address] Imm gran abs 0.02 0.00 - 0.10 K/cumm [facility] Lymphocyte abs 1.22 0.80 - 3.30 K/cumm [facility] Monocyte abs 0.60 0.20 - 0.80 K/cumm [facility] Eosinophil abs 0.25 0.00 - 0.50 K/cumm [facility] Basophil abs 0.03 0.00 - 0.10 K/cumm [facility] Neutrophil pct 61.6 % [facility] Comment: Interpretive Data Percent cell count reference ranges are not reported, since discordance with absolute values may lead to misinterpretation of CBC data. Current Interpretive Data was last revised on 2017. Imm gran pct 0.4 % [facility] Comment: Interpretive Data Percent cell count reference ranges are not reported, since discordance with absolute values may lead to misinterpretation of CBC data. Current Interpretive Data was last revised on 2017. Lymphocyte pct 22.1 % [facility] Comment: Interpretive Data Percent cell count reference ranges are not reported, since discordance with absolute values may lead to misinterpretation of CBC data. Current Interpretive Data was last revised on 2017. Monocyte pct 10.9 % [facility] Comment: Interpretive Data Percent cell count reference ranges are not reported, since discordance with absolute values may lead to misinterpretation of CBC data. Current Interpretive Data was last revised on 2017. Eosinophil pct 4.5 % [facility] Comment: Interpretive Data Percent cell count reference ranges are not reported, since discordance with absolute values may lead to misinterpretation of CBC data. Current Interpretive Data was last revised on 2017. Basophil pct 0.5 % [facility] Comment: Interpretive Data Percent cell count reference ranges are not reported, since discordance with absolute values may lead to misinterpretation of CBC data. Current Interpretive Data was last revised on 2017. Blood 11/29/2024 1:37 PM CDT 11/29/2024 1:37 PM CDT us Kailee Ferguson MD LAB BLOOD ORDERABLES Final Resul t [facility] Department [place] [address] * (ABNORMAL) CBC with auto differential (11/29/2024 1:37 PM CDT) WBC 5.52 3.80 - 9.90 K/cumm Comment:Testing performed by : [address] [address] Hgb 13.3 11.9 - 15.5 g/dL [facility] Comment:Testing performed by : [address] [address] Hct 40.7 35.6 - 45.5 % [facility] Comment:Testing performed by : [address] [address] Plt 149(L) 150 - 400 K/cumm [facility] Comment:Testing performed by : [address] [address] MPV 9.9 9.1 - 12.3 fL [facility] RBC 4.53 3.90 - 5.20 M/cumm [facility] MCV 89.8 81.3 - 96.4 fL [facility] MCH 29.4 27.1 - 33.3 pg [facility] MCHC 32.7 32.3 - 35.7 g/dL [facility] RDW CV 13.1 11.1 - 14.9 % [facility] RDW SD 43.0 35.7 - 48.1 fL [facility] NRBC abs 0.00 0.00 - 0.01 K/cumm [facility] ANC Prelim 3.40 1.50 - 6.50 K/cumm [facility] Comment: Interpretive Data The rapid ANC is a preliminary automated count and may vary from the final ANC (Neut Abs) reported in the WBC differential that follows. Current interpretive data was last revised 2024. Blood 11/29/2024 1:37 PM CDT 11/29/2024 1:37 PM CDT Kailee Ferguson MD LAB BLOOD ORDERABLES Final Resul t Performing Organization Address [place] [place] [address] * CEA (11/29/2024 1:37 PM CDT) Pathologist [facility] CEA 2.5 <=5.0 ng/mL Comment: Interpretive Data: Reference Range: Non-Smokers: 0.0 5.0 ng/mL Smokers: 0.0 6.5 ng/mL The [employer] CEA assay procedure was used. Results from different manufacturers or methods may not be comparable. Serial testing should be performed using the same method. Current interpretive data was last revised 2021. Blood 11/29/2024 1:37 PM CDT 11/29/2024 3:42 PM CDT Kailee Ferguson MD LAB BLOOD ORDERABLES Final Resul t Performing Organization Address [facility] de Phone Number [facility] [place] [address] * (ABNORMAL) Comprehensive metabolic panel (11/29/2024 1:37 PM CDT) [facility] Sodium 140 135 - 145 mmol/L Comment:Testing performed by : [facility], [address] [place] [address] Potassium, pl 4.0 3.3 - 4.9 mmol/L [facility] Chloride 106 97 - 110 mmol/L [facility] CO2 28 22 - 32 mmol/L [facility] Anion gap 6 2 - 15 mmol/L [facility] BUN 17 6 - 25 mg/dL [facility] Creatinine 1.25(H) 0.60 - 1.10 mg/dL [facility] Glucose 113 70 - 199 mg/dL [facility] Comment: Interpretive Data Fasting glucose >/= 126 mg/dl is diagnostic for diabetes. Fasting is defined as no caloric intake for at least 8 hours. Fasting glucose between 100 mg/dl to 125 mg/dl is diagnostic of prediabetes. In a patient with classic symptoms of hyperglycemia or hyperglycemic crisis, a random glucose >/= 200 mg/dl is diagnostic for diabetes. In the absence of unequivocal hyperglycemia, results should be confirmed by repeat testing. The classification and Diagnosis of Diabetes Diabetes Care 2021; 46: S19-S40. Current interpretive data was last revised 2022. Calcium 9.5 8.5 - 10.3 mg/dL [facility] Bilirubin, total 0.5 0.1 - 1.2 mg/dL [facility] Protein, pl 6.8 6.5 - 8.5 g/dL [facility] Albumin 4.0 3.5 - 5.0 g/dL [facility] Alk phos 62 40 - 130 Units/L [facility] ALT 10 7 - 45 Units/L [facility] AST 19 10 - 45 Units/L [facility] Blood 11/29/2024 1:37 PM CDT 11/29/2024 1:37 PM CDT us Kailee Ferguson MD LAB BLOOD ORDERABLES Final Resul t [facility] Department [place] [address] * MRI Abdomen Pelvis W WO Contrast (11/29/2024 12:32 PM CDT) Anatomical Region Laterality Modality Body N/A Magnetic Resonan ce 11/29/2024 1:33 PM CDT Impressions 11/29/2024 1:35 PM CDT 1. No evidence of metastatic disease in the abdomen or pelvis. 2. Mild right-sided pelvocaliectasis, not significantly changed from prior. This may represent sequela of ureteropelvic dissociation or obstruction. If there is further clinical concern for obstruction, this can be assessed with a dedicated renal Lasix study. Dictated by: Keith Campos MD, PHD The radiology attending physician has personally reviewed this study, and had reviewed and/or edited this written report and agrees with it. Electronically signed by: Davina Duncan M.D. Narrative 11/29/2024 1:35 PM CDT EXAMINATION: 1. MAGNETIC RESONANCE IMAGING OF THE ABDOMEN WITHOUT AND WITH CONTRAST 2. MAGNETIC RESONANCE IMAGING OF THE PELVIS WITHOUT AND WITH CONTRAST HISTORY: Colon cancer, assess for metastatic disease TECHNIQUE: MRI of the abdomen and pelvis was performed prior to and following intravenous administration of gadolinium contrast. Protocol: Abdomen dynamic and pelvis Contrast: Eovist 14 mL COMPARISON: MR abdomen pelvis 11/16/2023 FINDINGS: Liver: No surface nodularity. No steatosis or iron deposition. - Bile ducts: No intrahepatic or extrahepatic biliary duct dilation - Focal liver lesions: None - Vasculature: Patent portal and hepatic veins Gallbladder: Absent Pancreas: Normal Spleen: Small cyst or lymphangioma. Adrenals: Normal Kidneys: Mild tight-sided pelvicaliectasis and cortical thinning, unchanged. Normal left kidney. There is no suspicious renal lesion. Bladder: Normal Reproductive organs: Normal sized uterus. Normal appearance of ovaries. Other Findings: Clear lung bases. Postsurgical changes of right hemicolectomy. No lymphadenopathy. No ascites. No suspicious osseous lesion. Procedure Note Davina Duncan MD - 11/29/2024 EXAMINATION: 1. MAGNETIC RESONANCE IMAGING OF THE ABDOMEN WITHOUT AND WITH CONTRAST 2. MAGNETIC RESONANCE IMAGING OF THE PELVIS WITHOUT AND WITH CONTRAST HISTORY: Colon cancer, assess for metastatic disease TECHNIQUE: MRI of the abdomen and pelvis was performed prior to and following intravenous administration of gadolinium contrast. Protocol: Abdomen dynamic and pelvis Contrast: Eovist 14 mL COMPARISON: MR abdomen pelvis 11/16/2023 FINDINGS: Liver: No surface nodularity. No steatosis or iron deposition. - Bile ducts: No intrahepatic or extrahepatic biliary duct dilation - Focal liver lesions: None - Vasculature: Patent portal and hepatic veins Gallbladder: Absent Pancreas: Normal Spleen: Small cyst or lymphangioma. Adrenals: Normal Kidneys: Mild tight-sided pelvicaliectasis and cortical thinning, unchanged. Normal left kidney. There is no suspicious renal lesion. Bladder: Normal Reproductive organs: Normal sized uterus. Normal appearance of ovaries. Other Findings: Clear lung bases. Postsurgical changes of right hemicolectomy. No lymphadenopathy. No ascites. No suspicious osseous lesion. IMPRESSION: 1. No evidence of metastatic disease in the abdomen or pelvis. 2. Mild right-sided pelvocaliectasis, not significantly changed from prior. This may represent sequela of ureteropelvic dissociation or obstruction. If there is further clinical concern for obstruction, this can be assessed with a dedicated renal Lasix study. Dictated by: Keith Campos MD, PHD The radiology attending physician has personally reviewed this study, and had reviewed and/or edited this written report and agrees with it. Electronically signed by: Davina Duncan M.D. Kailee Ferguson MD IM MRI PROCEDURES Final Result * CT Chest WO Contrast (11/29/2024 11:21 AM CDT) Anatomical Region Laterality Modality Body N/A Computed Tomogra phy 11/29/2024 12:1 4 PM CDT Impressions 11/29/2024 12:14 PM CDT No evidence of metastatic disease in the chest Electronically signed by: Ruperto Savage M.D. Narrative 11/29/2024 12:14 PM CDT EXAMINATION: Computed tomography of the chest without intravenous contrast HISTORY: Breast and colon cancer TECHNIQUE: Transaxial computed tomographic images of the chest were obtained without intravenous contrast according to the standard protocol. COMPARISON: 11/24/2023 FINDINGS: Unchanged biapical pleural-parenchymal scarring. No suspicious pulmonary nodule. No focal consolidation, pleural effusion, pneumothorax or pulmonary edema. No thoracic lymphadenopathy. No pericardial effusion. Thoracic aorta is normal in caliber. Interval removal of right internal jugular chest port central venous catheter. No acute abnormality in the imaged upper abdomen, which will be better evaluated on same-day MRI. No aggressive osseous lesion. Procedure Note Ruperto Savage MD PhD - 11/29/2024 EXAMINATION: Computed tomography of the chest without intravenous contrast HISTORY: Breast and colon cancer TECHNIQUE: Transaxial computed tomographic images of the chest were obtained without intravenous contrast according to the standard protocol. COMPARISON: 11/24/2023 FINDINGS: Unchanged biapical pleural-parenchymal scarring. No suspicious pulmonary nodule. No focal consolidation, pleural effusion, pneumothorax or pulmonary edema. No thoracic lymphadenopathy. No pericardial effusion. Thoracic aorta is normal in caliber. Interval removal of right internal jugular chest port central venous catheter. No acute abnormality in the imaged upper abdomen, which will be better evaluated on same-day MRI. No aggressive osseous lesion. IMPRESSION: No evidence of metastatic disease in the chest Electronically signed by: Ruperto Savage M.D. Kailee Ferguson MD IMG CT PROCEDURES Final Result * Dexa Axial Skeleton Bone Density 1 or 2 Site (05/25/2024 12:21 PM CDT) Anatomical Region Laterality Modality Body N/A Radiographic Dorothy ging Historical Provider IMDavid DXA PROCEDURES Final Result * Colonoscopy (01/05/2024 1:14 PM CDT) Anatomical Region Laterality Modality Other Narrative Procedure Note Maykel Marshall MD - 01/05/2024 1:14 PM CDT ENDOSCOPY LAB Patient Name: Georgai Novoa Procedure Date: 01/05/2024 1:14 PM Date of : 1945 Admit Type: Outpatient Age: 78 Gender: Female Attending MD: Maykel Marshall M.D. Room: [facility] ENDOSCOPY ROOM 04 Note Status: Finalized Procedure: Colonoscopy Indications: High risk colon cancer surveillance: Personalhistory of colon cancer, ; History of metastatic coloncancer s/p R colectomy, last colonoscopy 11/2020 patent anastomosis otherwise normal. Reports loose stools requiring Imodium PRN. Comorbidities See the other procedure note for documentation of comorbidities Providers: Maykel Marshall M.D. Referring MD: Kailee Ferguson M.D. Medicines: Monitored Anesthesia Care Complications: No immediate complications. Estimated Blood Loss: Estimated blood loss was minimal. Procedure: Pre-Anesthesia Assessment: - Prior to the procedure, a History and Physicalwas performed, and patient medications, allergies and sensitivities were reviewed. The patient'stolerance of previous anesthesia was reviewed. - Immediately prior to administration ofmedications, the patient was re-assessed for adequacy to receive sedatives. The benefits, risks and alternatives of theprocedure and sedation were discussed and informed consentwas obtained. All questions were answered. Please referto the signed informed consent document in the medical record. The scope was passed under direct vision.The [id number] was introduced through the anusand advanced to the ileocolonic anastomosis. The colonoscopy was performed without difficulty. The patient tolerated the procedure well. The qualityof the bowel preparation was evaluated using the BBPS ([place] Bowel Preparation Scale) with scores of: Transverse Colon = 2 (minor amount of residual staining, small fragments of stool and/or opaque liquid, but mucosa seen well) and Left Colon = 2 (minor amount of residual staining, small fragmentsof stool and/or opaque liquid, but mucosa seen well).The total BBPS score equals 4. The quality of the bowel preparation was fair. Findings: The perianal and digital rectal examinations were normal. There was evidence of a prior end-to-side ileo-colonic anastomosis in the transverse colon. This was patent and was characterized byhealthy appearing mucosa. The colon (entire examined portion) appeared normal. Biopsies for histology were taken with a cold forceps from the entire colon for evaluation of microscopic colitis. Multiple small and large-mouthed diverticula were found in thesigmoid colon. Non-bleeding internal hemorrhoids were found during retroflexion. Impression: - Patent end-to-side ileo-colonic anastomosis, characterized by healthy appearing mucosa. - The entire examined colon is normal. Biopsied. - Diverticulosis in the sigmoid colon. - Non-bleeding internal hemorrhoids. Recommendation: - The patient will be observed post-procedure,until all discharge criteria are met. - Surveillance colonoscopy in 3 years if medically indicated given age/comorbidities. - Await pathology results. - Continue home medications. - Resume previous diet. - Follow up with referring physician as previously scheduled. - In the unusual situation that you developabdominal, bleeding or other significant problems in the days following this procedure please call [phone] ask for my nurse, Zohra Reyes. After hours and evenings please call [phone] and speak to theGI fellow configuration engineer. Please tell the fellow that Dr. Marshall did your procedure and that you were instructed to have the fellow call me or thephysician covering for me to discuss the management of your condition. If you have an urgent problem, please goto the nearest emergency room and have the ER doctorcall my office during the day or the GI fellow afterhours and weekends to arrange admission or transfer toour facility. Please bring this report with you if yougo to the emergency room. Attending Participation: I personally performed the entire procedure. Electronically signed by Maykel Marshall MD Maykel Marshall M.D. 01/05/2024 1:46:23 PM Number of Addenda: 0 Note Initiated On: 01/05/2024 1:14 PM Maykel Marshall MD ENDOSCOPY PROCEDURES Edited Result - Final from Last 3 Months or Most Recently Relevant to Health Maintenance Insurance HEALTHCARE Advance Directives For more information, please contact: [phone] * Full Code (Latest Code Status on File) Date Activated Date Inactivated Comments 01/05/2024 12:01 PM 01/05/2024 6:29 PM * Full Code Date Activated Date Inactivated Comments 12/04/2020 9:29 AM 12/04/2020 3:06 PM * Full Code Date Activated Date Inactivated Comments 09/15/2018 12:23 PM 09/18/2018 9:48 PM Care Teams Film Library Clerk Relationship Specialty Start Date End Date Brandon Haddad [address] [place], [place] [id number] PCP - General Internal Medicine 05/11/24 Kailee Ferguson MD [address] [place], [place] [id number] Medical Oncologist/Technical Business Systems Analyst Medical Oncology 01/30/19 Lucrecia Kaur MD PhD [address] [place] [address] [address] [place], [place] [id number] Radiation Oncologist Radiation Oncology 08/04/21 Taylor Luke MD [address] [place] [address] [address] [place], [place] [id number] Surgeon Surgical Oncology 05/05/22 Alma Akers, PhD [address] [place] [address] Nurse Practitioner Radiation Oncology 05/05/22
--- OUTSIDE RECORDS SUMMARY | 2025-02-11 15:59 | XMS_ITS | Referral Summary ---
Author Organization [facility] Address [address] [place] [address] Care Team Providers Care Boarder Hand Name Role Phone Kailee Ferguson MD Unavailable Lucrecia Kaur MD PhD Unavailable [phone] Taylor Luke MD Unavailable [phone] Alma Akers PhD Unavailable [phone] Brandon Haddad DO Primary Care Provider Encounters Date Type Department Care Team Description 01/30/2025 10:53 AM CDT - 01/30/2025 11:59 PM CDT Hospital Encounter [facility] for [facility] [address] [place] [address] [address] [place] [address] Screening mammogram, encounter for Discharge Disposition: Discharge to home or self care 01/30/2025 1:00 PM CDT Office Visit [facility] Radiation Oncology at [facility] Cancer [facility] [address] [place] [address] Xenia Pop PA Malignant neoplasm of upper-outer quadrant of left breast in female, estrogen receptor positive (HCC) (Primary Dx) 01/11/2025 Telephone [facility] Cardiology [address] [place] [address] Umang Weathers MD 12/24/2024 Orders Only [facility] Scanning, Provider 12/20/2024 Telephone [facility] Oncology [address] [place] [phone] Jose Esquivel 12/20/2024 Orders Only [facility] Oncology [address] [place] [phone] ProviderCely MD 12/06/2024 1:00 PM CDT 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 (Primary Dx); Primary malignant neoplasm of colon (HCC); Malignant neoplasm of upper-outer quadrant of left breast in female, estrogen receptor positive (HCC); Low bone mass 11/29/2024 2:15 PM CDT Lab [address] [address] Primary malignant neoplasm of colon (HCC); Malignant neoplasm of upper-outer quadrant of left breast in female, estrogen receptor positive (HCC) 11/29/2024 3:00 PM CDT Office Visit [facility] Oncology [address] [place] [phone] Kailee Ferguson MD Primary malignant neoplasm of colon (HCC) (Primary Dx); Malignant neoplasm of upper-outer quadrant of left breast in female, estrogen receptor positive (HCC) 11/29/2024 10:57 AM CDT - 11/29/2024 11:59 PM CDT Hospital Encounter [facility] Radiology at [facility] Medicine [address] [place] [address] Primary malignant neoplasm of colon (HCC) Discharge Disposition: Discharge to home or self care 11/29/2024 10:56 AM CDT - 11/29/2024 11:59 PM CDT Hospital Encounter [facility] Radiology at [facility] Medicine [address] [place] [address] Primary malignant neoplasm of colon (HCC) Discharge Disposition: Discharge to home or self care 11/13/2024 11:15 AM CDT Office Visit [facility] Cardiology [address] [place] [address] Umang Weathers MD Dilated cardiomyopathy (HCC) (Primary Dx) from Last 3 Months Allergies Active Allergy Reactions Criticality Noted Date [...] Personal history of irradiation 09/17/2021 Osteopenia 07/20/2021 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 use 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 inhibitor Personal history of malignant neoplasm of breast 07/20/2021 Bone disorder 07/20/2021 Malignant neoplasm of upper- outer quadrant of left breast in female, estrogen receptor positive 05/10/2021 Cancer Staging:Pathologic stage from 07/28/2021:Stage IA(pT1b, pN0(sn), cM0, G2, ER+, VT+, HER2-) - Signed by Graeme Edwards MD PhD on 07/28/2021 Abnormal mammogram 04/17/2021 Dilated cardiomyopathy 03/11/2021 PVC's (premature ventricular contractions) 12/30 Adenocarcinoma of colon metastatic to liver 10/27 Overview (11/07/2020): Added automatically from request for surgery [id number] Non-rheumatic mitral regurgitation 02/16/2020 NÚÑEZ (dyspnea on [...] cardiomyopathy 08/28/201203/21 Overview (12/01/2016): PRIM CARDIOMYOPATHY NEC Immunizations Immunization Administration Dates Next Due Influenza, Quadrivalent, Hig h Dose, Preservative Free, Intrr 06/22/2020 Tdap 03/30/2010 Social History Tobacco Use Types Packs/Day Years [...] on file 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 Gender Identity Female 12/09/2020 7:19 AM CDT Sexual Orientation Not on file Last Filed Vital Signs Vital Sign Reading [...] Access Primary malignant neoplasm of colon (HCC) Medical Devices Implanted Type Area Bindery Worker Device Identifier Shelf Expiration Date Model / Serial / Lot Port- 6 Implanted: (Quantity not on file) Right: Chest Wall [employer] [id number] Magseed 18ga 7cm Marker Breast Biopsy - [id number] Implanted:Qty : 1 on 05/20/2021 at [facility] Left: Breast [employer] [id number] 12/26/2024 [id number] Procedures Procedure Name Priority Date/Time Associated Diagnosis [...] calcification, or architectural distortion in either breast. Self Screening Mammogram IMG MAMMO PROCEDURES Fi nal Result * SCAN - PATHOLOGY (12/24/2024 9:25 AM CDT) Provider Scanning Final Result * Miscellaneous Lab Order (12/20/2024 8:38 AM CDT) Historical Provider LAB BLOOD ORDERABLES Marcie shirley Result EXTERNAL LAB * Phosphorus (11/29/2024 3:50 PM CDT) Phosphorus, pl 3.6 2.3 - 4.5 mg/dL Comment:Testing performed by : [facility], [address] [place] [address] Blood 11/29/2024 3:50 PM CDT 11/29/2024 3:55 PM CDT Kailee Ferguson MD LAB BLOOD ORDERABLES Final Resul t [facility] Department [place] [address] * (ABNORMAL) eGFR (11/29/2024 1:37 PM CDT) Pathologist [facility] eGFR 44(L) >=60 mL/min/1. 73 m2 Comment: [...] of Race in Diagnosing Kidney Disease, JASN 2020). The CKD-EPI equation should not be used for patients with unstable renal function and has not been validated in children and those over 70. Current interpretive data was last reviewed 2021. Blood 11/29/2024 1:37 PM CDT 11/29/2024 1:37 PM CDT us Kailee Ferguson MD LAB BLOOD ORDERABLES Final Resul t [facility] Department [place] [address] * Differential, auto (11/29/2024 1:37 PM CDT) [facility] Neutrophil abs 3.40 1.50 - 6.50 K/cumm Comment:Testing performed by : [facility], [address] [place] [address] Imm gran abs 0.02 0.00 - 0.10 K/cumm [facility] Lymphocyte abs 1.22 0.80 - 3.30 K/cumm [facility] Monocyte abs 0.60 0.20 - 0.80 K/cumm [facility] Eosinophil abs 0.25 0.00 - 0.50 K/cumm [facility] Basophil abs 0.03 0.00 - 0.10 K/cumm [facility] Neutrophil pct 61.6 % [facility] Comment: Interpretive Data Percent cell count reference ranges are not reported, since discordance with absolute values may lead to misinterpretation of CBC data. Current Interpretive Data was last revised on 2017. Imm gran pct 0.4 % [facility] Comment: Interpretive Data Percent cell count reference ranges are not reported, since discordance with absolute values may lead to misinterpretation of CBC data. Current Interpretive Data was last revised on 2017. Lymphocyte pct 22.1 % [facility] Comment: Interpretive Data Percent cell count reference ranges are not reported, since discordance with absolute values may lead to misinterpretation of CBC data. Current Interpretive Data was last revised on 2017. Monocyte pct 10.9 % [facility] Comment: Interpretive Data Percent cell count reference ranges are not reported, since discordance with absolute values may lead to misinterpretation of CBC data. Current Interpretive Data was last revised on 2017. Eosinophil pct 4.5 % [facility] Comment: Interpretive Data Percent cell count reference ranges are not reported, since discordance with absolute values may lead to misinterpretation of CBC data. Current Interpretive Data was last revised on 2017. Basophil pct 0.5 % [facility] Comment: Interpretive Data Percent cell count reference ranges are not reported, since discordance with absolute values may lead to misinterpretation of CBC data. Current Interpretive Data was last revised on 2017. Blood 11/29/2024 1:37 PM CDT 11/29/2024 1:37 PM CDT us Kailee Ferguson MD LAB BLOOD ORDERABLES Final Resul t [facility] [address] [facility] Department [place] [address] * (ABNORMAL) CBC with auto differential (11/29/2024 1:37 PM CDT) WBC 5.52 3.80 - 9.90 K/cumm Comment:Testing performed by : [address] [place], [place] [address] Hgb 13.3 11.9 - 15.5 g/dL [facility] Comment:Testing performed by : [address] [address] Hct 40.7 35.6 - 45.5 % [facility] Comment:Testing performed by : [address] [address] Plt 149(L) 150 - 400 K/cumm [facility] Comment:Testing performed by : [address] [address] MPV 9.9 9.1 - 12.3 fL [facility] RBC 4.53 3.90 - 5.20 M/cumm [facility] MCV 89.8 81.3 - 96.4 fL [facility] MCH 29.4 27.1 - 33.3 pg [facility] MCHC 32.7 32.3 - 35.7 g/dL [facility] RDW CV 13.1 11.1 - 14.9 % [facility] RDW SD 43.0 35.7 - 48.1 fL [facility] NRBC abs 0.00 0.00 - 0.01 K/cumm [facility] ANC Prelim 3.40 1.50 - 6.50 K/cumm [facility] Comment: Interpretive Data The rapid ANC is a preliminary automated count and may vary from the final ANC (Neut Abs) reported in the WBC differential that follows. Current interpretive data was last revised 2024. Blood 11/29/2024 1:37 PM CDT 11/29/2024 1:37 PM CDT us Kailee Ferguson MD LAB BLOOD ORDERABLES Final Resul t [facility] [address] [facility] Department [place] [address] * CEA (11/29/2024 1:37 PM CDT) CEA 2.5 <=5.0 ng/mL Comment: Interpretive Data: Reference Range: Non-Smokers: 0.0 5.0 ng/mL Smokers: 0.0 6.5 ng/mL The [employer] CEA assay procedure was used. Results from different manufacturers or methods may not be comparable. Serial testing should be performed using the same method. Current interpretive data was last revised 2021. Blood 11/29/2024 1:37 PM CDT 11/29/2024 3:42 PM CDT us Kailee Ferguson MD LAB BLOOD ORDERABLES Final Resul t [facility] [address] [facility] Department [place] [address] * (ABNORMAL) Comprehensive metabolic panel (11/29/2024 1:37 PM CDT) Pathologist [facility] Sodium 140 135 - 145 mmol/L Comment:Testing performed by : [facility], [address] [place] [address] Potassium, pl 4.0 3.3 - 4.9 mmol/L [facility] Chloride 106 97 - 110 mmol/L [facility] CO2 28 22 - 32 mmol/L [facility] Anion gap 6 2 - 15 mmol/L [facility] BUN 17 6 - 25 mg/dL [facility] Creatinine 1.25(H) 0.60 - 1.10 mg/dL [facility] Glucose 113 70 - 199 mg/dL [facility] Comment: Interpretive Data Fasting glucose >/= [...] 2022. Calcium 9.5 8.5 - 10.3 mg/dL [facility] Bilirubin, total 0.5 0.1 - 1.2 mg/dL [facility] Protein, pl 6.8 6.5 - 8.5 g/dL [facility] Albumin 4.0 3.5 - 5.0 g/dL [facility] Alk phos 62 40 - 130 Units/L [facility] ALT 10 7 - 45 Units/L [facility] AST 19 10 - 45 Units/L [facility] Blood 11/29/2024 1:37 PM CDT 11/29/2024 1:37 PM CDT us Kailee Ferguson MD LAB BLOOD ORDERABLES Final Resul t [facility] Department [place] [address] * MRI Abdomen Pelvis W WO Contrast [...] by: Davina Duncan M.D. Kailee Ferguson MD [facility] MRI PROCEDURES Final Result * CT Chest [...] chest Electronically signed by: Ruperto Savage M.D. us Kailee FINN CT PROCEDURES Final Result * Dexa Axial Skeleton Bone Density 1 or 2 Site (05/25/2024 12:21 PM CDT) Anatomical Region Laterality Modality Body N/A Radiographic Dorothy ging [facility] Provider MD FINN DXA PROCEDURES Final Result * Colonoscopy (01/05/2024 1:14 PM CDT) Anatomical Region Laterality Modality Other Narrative Procedure Note Maykel Marshall MD - 01/05/2024 1:14 PM CDT ENDOSCOPY LAB Patient Name: Georgia Novoa Procedure Date: 01/05/2024 1:14 PM Date of : 1945 Admit Type: Outpatient Age: 78 Gender: Female Attending MD: Maykel Marshall M.D. [facility] 04 Note Status: Finalized Procedure: [...] The scope was passed under direct vision.The [id number] was introduced through the anusand advanced to the ileocolonic anastomosis. The colonoscopy was performed without difficulty. The patient tolerated the procedure well. The qualityof the bowel preparation was evaluated using the BBPS ([place] Bowel Preparation Scale) with scores of: Transverse [...] the days following this procedure please call [phone] ask for my nurse, Zohra Reyes. After hours and evenings please call [phone] and speak to theGI fellow computational linguist. Please tell the fellow that Dr. Marshall [...] Most Recently Relevant to Health Maintenance Insurance [facility] Advance Directives For more information, please contact: [phone] * Full Code (Latest Code Status on File) Date Activated Date Inactivated Comments 01/05/2024 12:01 PM 01/05/2024 6:29 PM * Full Code Date Activated Date Inactivated Comments 12/04/2020 9:29 AM 12/04/2020 3:06 PM * Full Code Date Activated Date Inactivated Comments 09/15/2018 12:23 PM 09/18/2018 9:48 PM Care Teams Boarder Hand Relationship Specialty Start Date End Date Brandon Haddad DO [address] [facility] [address] [place] [address] PCP - General Internal Medicine 05/11/24 Kailee Ferguson MD [address] [place] [address] Medical Oncologist/Sprinkler Irrigation Equipment Mechanic Medical Oncology 01/30/19 Lucrecia Kaur MD PhD [address] [place] [address] Radiation Oncologist Radiation Oncology 08/04/21 Taylor Luke MD [address] [place] [address] Surgeon Surgical Oncology 05/05/22 Alma Akers, PhD [address] [place] [address] Nurse Practitioner Radiation Oncology 05/05/22
[2025-02-11 16:01] LABS: Parathyroid Intact 66.2 pg/mL (14.5-75.2)
== END 2025-02-11 14:51 | disposition home or self-care (01) ==
LOC: ANHLAB 14:51
PROVIDERS: PCP Internal Medicine; Visit Provider Internal Medicine Nephrology
DX: D50.9 Iron deficiency anemia, unspecified (principal); N18.31 Chronic kidney disease, stage 3a; E78.5 Hyperlipidemia, unspecified
CPT/HCPCS: 36415; 80061; 80069; 82570; 83970; 84156; 85027

== ENCOUNTER 2025-03-27 13:42 | Outpatient (CLI) | payer OTHER, SELFPAY ==
--- OUTSIDE RECORDS SUMMARY | 2025-03-27 13:54 | XMS_ITS ---
Author Organization [facility] Address [address] [place] [address] Care Team Providers Care Ediscovery Project Manager Name Role Phone Kailee Ferguson MD Unavailable Lucrecia Kaur MD PhD Unavailable [phone] Taylor Luke MD Unavailable [phone] Alma Akers PhD Unavailable [phone] Brandon Haddad DO Primary Care Provider [phone] Active Problems Problem Noted Date Diagnosed Date Malignant neoplasm of colon 12/13/2023 COVID 03/11/2022 COVID-19 03/11/2022 H/O colon cancer, stage IV 03/09/2022 Encounter for follow-up exam ination after completed treatment for malignant neoplasm 09/17/2021 Personal history of irradiation 09/17/2021 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 Personal history of malignant neoplasm of breast 07/20/2021 Bone disorder 07/20/2021 Malignant neoplasm of upper- outer quadrant of left breast in female, estrogen receptor positive 05/10/2021 Cancer Staging:Pathologic stage from 07/28/2021:Stage IA(pT1b, pN0(sn), cM0, G2, ER+, [place]+, HER2-) - Signed by Graeme Edwards MD PhD on 07/28/2021 Abnormal mammogram 04/17/2021 Dilated cardiomyopathy 03/11/2021 PVC's (premature ventricular contractions) 12/30 Adenocarcinoma of colon metastatic to liver 10/27 Overview (11/07/2020): Added automatically from request for surgery [id number] Non-rheumatic mitral regurgitation 02/16/2020 NÚÑEZ (dyspnea on [...] left breast in female, estrogen receptor positive (HCC)half-way current use 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 inhibitorLow bone mass [...]
--- OUTSIDE RECORDS SUMMARY | 2025-03-27 13:54 | XMS_ITS ---
Author Organization [facility] Address [address] [place], [place] [address] Care Team Providers Care Orthopedic Mechanic Name Role Phone DENNYS ESTEVEZ Unavailable [phone] Brandon Haddad Unavailable Unavailable Allergies Allergen (clinical drug ingredient) Drug/Non Drug Allergy documented on EMR Reaction Allergy Type Onset Date Status Latex Latex (uncoded) Unknown Allergy 03/21/2025 Act hector aspirin Aspirin Unknown Drug Allergy 08/27/2020 active Iodine Unknown Drug Allergy 03/21/2025 Active Substance with penicillin structure and antibacterial mechanism of action (substance) Penicillins Unknown Drug Allergy 08/27/2020 active REASON FOR VISIT *General care Medications Medication SIG (Take, Route, Frequency, Duration) Notes Start Date End Date Status Enoxaparin Sodium 30 MG/0.3ML Injection; Duration: 10 Days Active Gentamicin Sulfate 0.3 % Ophthalmic; Dur ation: 12 Days Active FLUoxetine HCl 10 MG Oral; Duration: 90 Days Active Levothyroxine Sodium 75 MCG Oral; Duration: 90 Days Active Entresto 24-26 MG Oral; Duration: 30 Days Active Xiidra 5 % Ophthalmic; Duration : 30 Days Active Anastrozole 1 MG Oral; Duration: 90 Days Active Carvedilol 3.125 MG Oral; Duration: 90 Days Active Farxiga 10 MG Oral; Duration: 30 Days Active Clindamycin HCl 300 MG Oral; Duration: 1 Days Active Vital Signs Height 60.00 in 03/21/2025 Weight 170 lbs 03/21/2025 BMI 33.2 kg/m2 03/21/2025 Height-cm 152.40 cm 03/21/2025 Weight-kg 77.11 kg 03/21/2025 Encounters Encounter Location Date Provider Diagnosis [facility] [place] [address] [facility] [address] [place], [place] [id number] 03/21/2025 DENNYS ESTEVEZ Fungal infection of nail B35.1 ; Posterior tibial tendinitis of left lower extremity M76.822 ; Unspecified atherosclerosis of [place] arteries of extremities, bilateral legs I70.203 ; Pain in right toe(s) M79.674 and Left foot pain M79.672 Assessments Encounter Date Diagnosis (ICD Code) Assessment Notes Treatment Notes Treatment Clinical Notes Section Notes 03/21/2025 Fungal infection of nail (ICD-10 - B35.1) Nails 1-5 Bilateral were debrided extensively with nail nippers and emery board, reducing length and girth to pink healthy tissue with any subungual debris and necrotic tissue removed 03/21/2025 Posterior tibial tendinitis of left lower extremity (ICD-10 - M76.822) 03/21/2025 Unspecified atherosclerosis of [place] arteries of extremities, bilateral legs (ICD-10 - I70.203) 03/21/2025 Pain in right toe(s) (ICD-10 - M79.674) 03/21/2025 Left foot pain (ICD-10 - M79.672) Plan Of Treatment Treatment Notes Assessment Notes Fungal infection of nail Nails 1-5 Bilat eral were debrided extensively with nail nippers and emery board, reducing length and girth to pink healthy tissue with any subungual debris and necrotic tissue removed Next Appt Details Follow Up: 9 weeks, Reason: Provider Name:DENNYS HIGHTOWER, 05/23/2025 01:20:00 PM, [address] [facility], [place], [place], [id number], Progress Notes * SOMMER UZAIR EDOB: [birth year] (79 yo F)Acc No.[id number]:03/21/2025 Patient: UZAIR GONZALEZ Provider: Brittnee Estevez DPM :1945 A ge:79 Y S ex:Female Date:03/21/2025 Address:[address] [place], [place] [id number] Subjective: * Chief Complaints: * 1 . *General care. * HPI: H PI: General care f or p p P atient presents to the office for at risk foot care. Patient states that their nails are thickened, elongated and painful. Patient states that it is aggravated by shoe gear. Onset is gradual. Patient denies being diabetic. Patient denies taking blood thinners. Date last seen by Dr. Haddad was 01/2025. Initials KB. * ROS: G eneral / Constitutional: Patient denies c hange in appetite, fatigue, chills, fever.? C ardiovascular: Chest pain d enies. N eurologic: Loss of use of extremity d enies. * Medical History: N o Reported Medical History.Medical History Verified. * Surgical History: D enies Past Surgical History. * Hospitalization/Major Diagno stic Procedure: D enies Past Hospitalization. * Family History: F ather: PRN - Father: :: Cancer,,known absent . M other: PRN - Mother: :: Diabetes,,known absent . B rother: SIB - Brother: :: Cancer,,known absent . * Social History: M igrated Social History: M igrated Social History: Alcohol intake : , Smoking Status : Never used tobacco , History of tobacco use :. * Medications: T aking Carvedilol 3.125 MG Tablet Oral , Taking Anastrozole 1 MG Tablet Oral , Taking Xiidra 5 % Solution Ophthalmic , Taking Clindamycin HCl 300 MG Capsule Oral , Taking Farxiga 10 MG Tablet Oral , Taking Entresto 24-26 MG Tablet Oral , Taking Levothyroxine Sodium 75 MCG Tablet Oral , Taking FLUoxetine HCl 10 MG Capsule Oral , Taking Gentamicin Sulfate 0.3 % Solution Ophthalmic , Taking Enoxaparin Sodium 30 MG/0.3ML Solution Prefilled Syringe Injection , Medication List reviewed and reconciled with the patient * Allergies: A spirin: Allergy - Onset Date 08/27/2020, Penicillins: Allergy - Onset Date 08/27/2020, Iodine - Onset Date 03/21/2025, Latex - Onset Date 03/21/2025. Objective: * Vitals: W t: 170 lbs, Wt-k.11 kg, Ht: 60.00 in, Ht-cm: 152.40 cm, BMI: 33.2 Index, Body Surface Area: 1.8. * Examination: P hysical Examination: Gen: T he patient is awake, alert, well developed, well groomed and well nourished. They are in no apparent distress. . Musc: F oot structure is normal bilateral. Muscle strength is 5/5 to all joints bilaterally. There is no pain on palpation. . Derm: T here is absent hair growth on bilateral feet. There are pigmentary changes of bilateral foot. The skin color is red. The skin texture is thin and shiny. Distal cooling noted in bilateral feet. Nails are thick, discolored, and dystrophic with subungual debris. They are painful to palpation. . Neuro: G rossly intact to light touch bilateral . Vasc: P osterior tibialis pulse 0/4 bilaterally. Dorsalis pedis pulse 0/4 bilaterally. No edema noted. Capillary fill time > 3 seconds to all digits. . Assessment: * Assessment: 1. F ungal infection of nail - B35.1 (Primary) 2 . P osterior tibial tendinitis of left lower extremity - M76.822 3 . U nspecified atherosclerosis of [place] arteries of extremities, bilateral legs - I70.203 4 . P ain in right toe(s) - M79.674 5 . L eft foot pain - M79.672 Plan: * Treatment: * Follow Up: 9 weeks * Billing Information: * Visit Code: * Procedure Codes: * Electronic signature of DENNYS ESTEVEZ DPM on 03/27/2025 at 01:54 PM CDT Sign off status: Pending * Provider: Brittnee Estevez DPM Date: 03/21/2025 Generated for Doris Woody/Rachel on: 03/27/2025 01:54 PM CDT History and Physical Notes * HPI (History of Present Illness) Category Sub-Category Detail Notes Category Not es HPI General care Patient presents to the office for at risk foot care. Patient states that their nails are thickened, elongated and painful. Patient states that it is aggravated by shoe gear. Onset is gradual. Patient denies being diabetic. Patient denies taking blood thinners. Date last seen by Dr. Haddad was 01/2025. Initials KB Examination Category Sub-Category Detail Notes Category Not es Physical Examination Gen: The patient is awake, alert, well developed, well groomed and well nourished. They are in no apparent distress. Vasc: Posterior tibialis p ulse 0/4 bilaterally. Dorsalis pedis pulse 0/4 bilaterally. No edema noted. Capillary fill time > 3 seconds to all digits. Neuro: Grossly intact to li ght touch bilateral Musc: Foot structure is no rmal bilateral. Muscle strength is 5/5 to all joints bilaterally. There is no pain on palpation. Derm: There is absent hair growth on bilateral feet. There are pigmentary changes of bilateral foot. The skin color is red. The skin texture is thin and shiny. Distal cooling noted in bilateral feet. Nails are thick, discolored, and dystrophic with subungual debris. They are painful to palpation.
--- OUTSIDE RECORDS SUMMARY | 2025-03-27 13:54 | XMS_ITS | Encounter Summary ---
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 Gender Identity Female 12/09/2020 7:19 AM CDT [...] on filedocumented in this encounter Care Teams Finance Mgr Relationship Specialty Start Date End Date Reji Duffy MD [address] [place], [place] [id number] PCP - General Internal Medicine 09/09/22 05/10/24 Brandon Haddad DO [address] [place] [address] PCP - General Internal Medicine 05/11/24 Kailee Ferguson MD [address] [place] [address] [address] [place] [address] Medical Oncologist/Medical Management Specialist Medical Oncology 01/30/19 Lucrecia Kaur MD PhD [address] [place] [address] [address] [place] [address] Radiation Oncologist Radiation Oncology 08/04/21 Taylor Luke MD [address] [place] [address] [address] [place] [address] Surgeon Surgical Oncology 05/05/22 Alma Akers, PhD [address] [place] [address] [address] [place] [address] Nurse Practitioner Radiation Oncology 05/05/22 documented as of this encounter
--- OUTSIDE RECORDS SUMMARY | 2025-03-27 13:54 | XMS_ITS | Encounter Summary ---
Author Organization [facility] Address [address] [place] [address] Phone Care Team Providers Care Cryogenics Repairer Name Role Phone Paulie Alexandra MD Primary Care Provider [phone] Kailee Ferguson MD Unavailable Lucrecia Kaur MD PhD Unavailable [phone] Taylor Luke MD Unavailable [phone] Alma Akers PhD Unavailable [phone] Reji Duffy MD Primary Care Provider [phone] Brandon Haddad DO Primary Care Provider [phone] Encounter Details Date Type Department Care Team [...] on file 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 Gender Identity Female 12/09/2020 7:19 AM CDT [...] on filedocumented in this encounter Care Teams Cryogenics Repairer Relationship Specialty Start Date End Date Paulie Alexandra MD [address] [facility] [address] [place] [address] PCP - General 09/03/17 09/08/22 Reji Duffy MD [address] [place] [address] PCP - General Internal Medicine 09/09/22 05/10/24 Brandon Haddad DO [address] [place] [address] PCP - General Internal Medicine 05/11/24 Kailee Ferguson MD [address] [place], [place] [id number] Medical Oncologist/Shredded Filler Machine Wrapper Layer Medical Oncology 01/30/19 Lucrecia Kaur MD PhD [address] [place], [place] [id number] Radiation Oncologist Radiation Oncology 08/04/21 Taylor Luke MD [address] [place], [place] [id number] Surgeon Surgical Oncology 05/05/22 Alma Akers, PhD [address] [facility] [address] [place] [address] Nurse Practitioner Radiation Oncology 05/05/22 documented as of this encounter
--- OUTSIDE RECORDS SUMMARY | 2025-03-27 13:54 | XMS_ITS | Referral Summary ---
Author Organization [facility] Address [address] [place] [address] Care Team Providers Care Conference Specialist Name Role Phone Kailee Ferguson MD Unavailable Lucrecia Kaur MD PhD Unavailable [phone] Taylor Luke MD Unavailable [phone] Alma Akers PhD Unavailable [phone] Brandon Haddad DO Primary Care Provider [phone] Encounters Date Type Department Care Team Description 01/30/2025 10:53 AM CDT - 01/30/2025 11:59 PM CDT [facility] [address] [place] [address] [address] [place] [address] Screening mammogram, encounter for Discharge Disposition: Discharge to home or self care 01/30/2025 1:00 PM CDT Office Visit [facility] [address] [place] [address] Xenia Pop PA Malignant neoplasm of upper-outer quadrant of left breast in female, estrogen receptor positive (HCC) (Primary Dx) 01/11/2025 Telephone [facility] [address] [place] [address] Umang Weathers MD from Last 3 Months Allergies Active Allergy [...] by mouth 2 (two) times a day 12/19/19 21 Active levothyroxine (SYNTHROID) 75 mcg tablet Take 1 tablet (75 mcg total) by mouth daily 05/20/20 21 Active FLUoxetine 10 mg capsule Take 1 tablet/caps ule (10 mg total) by mouth daily 12/25/19 23 Active anastrozole (ARIMIDEX) 1 mg tablet TAKE 1 TABLET BY MOUTH EVERY DAY 90 tablet 2 10/01/19 25 Active dapagliflozin propanediol (Farxiga) 10 mg tablet Take 1 tablet (10 mg total) by mouth daily 90 tablet 3 10/25/19 25 Active carvediloL (COREG) 3.125 mg tabletIndications: Dilated cardiomyopathy (HCC),Chronic combined systolic and diastolic CHF (congestive heart failure) (HCC) Take 1 tablet (3.125 mg total) by mouth 2 (two) times a day with meals 180 tablet 01/12/20 25 Active Entresto 24-26 mg tablet TAKE 1/2 TABLET TWICE A DAY BY MOUTH 30 tablet 5 03/18/20 25 Active sacubitriL-valsart an (Entresto) 24-26 mg tablet TAKE 0.5 TABLETS BY MOUTH 2 TIMES A DAY. 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 Gender Identity Female 12/09/2020 7:19 AM CDT [...] colon (HCC) Medical Devices Implanted Type Area Certified Nursing Attendant Device Identifier Shelf Expiration Date Model / Serial / Lot Port- 6 Implanted: (Quantity not on file) Right: Chest Wall [employer] [id number] Magseed 18ga 7cm Marker Breast Biopsy - [id number] Implanted:Qty : 1 on 05/20/20[facility] at [facility] Left: Breast [employer] [id number] 12/26/2024 [id number] Procedures Procedure Name Priority Date/Time Associated Diagnosis Comments SCREENING MAMMOGRAM BILATERAL W ZHOU Schedule Routine, Read Routine (OP Routine) 01/30/2025 11:05 AM CDT Screening mammogram, encounter for DEXA AXIAL SKELETON BONE DENSITY 1 OR [...] IMG MAMMO PROCEDURES Fi nal Result * Dexa Axial Skeleton Bone Density 1 or 2 Site (05/25/2024 12:21 PM CDT) Anatomical Region Laterality Modality Body N/A Radiographic Dorothy ging us Historical Provider IMDavid DXA PROCEDURES Final Result * Colonoscopy (01/05/2024 1:14 PM CDT) Anatomical Region Laterality Modality Other Narrative Procedure Note Maykel Marshall MD - 01/05/2024 1:14 PM CDT ENDOSCOPY LAB Patient Name: Georgia Novoa Procedure Date: 01/05/2024 1:14 PM Date of : 1945 Admit Type: Outpatient Age: 78 Gender: Female Attending MD: Maykel Marshall M.D. Room: [facility] ENDOSCOPY ROOM 04 Note Status: Finalized [...] The scope was passed under direct vision.The [id number] was introduced through the anusand advanced to the ileocolonic anastomosis. The colonoscopy was performed without difficulty. The patient tolerated the procedure well. The qualityof the bowel preparation was evaluated using the BBPS ([place] Bowel Preparation Scale) with scores of: Transverse [...] the days following this procedure please call [phone] ask for my nurse, Zohra Reyes. After hours and evenings please call [phone] and speak to theGI fellow neonatal pediatric nurse. Please tell the fellow that Dr. Marshall [...] Most Recently Relevant to Health Maintenance Insurance [facility] Advance Directives For more information, please contact: [phone] * Full Code (Latest Code Status on File) Date Activated Date Inactivated Comments 01/05/2024 12:01 PM 01/05/2024 6:29 PM * Full Code Date Activated Date Inactivated Comments 12/04/2020 9:29 AM 12/04/2020 3:06 PM * Full Code Date Activated Date Inactivated Comments 09/15/2018 12:23 PM 09/18/2018 9:48 PM Care Teams Conference Specialist Relationship Specialty Start Date End Date Brandon Haddad DO [address] [place] [address] PCP - General Internal Medicine 05/11/24 Kailee Ferguson [facility] [address] [place], [place] [phone] Medical Oncologist/Communications Professor Medical Oncology 01/30/19 Lucrecia Kaur MD PhD [address] [place], [place] [phone] Radiation Oncologist Radiation Oncology 08/04/21 Taylor Luke MD [address] [place], [place] [id number] Surgeon Surgical Oncology 05/05/22 Alma Akers, PhD [address] [facility] [address] [place] [address] Nurse Practitioner Radiation Oncology 05/05/22
--- OUTSIDE RECORDS SUMMARY | 2025-03-27 13:54 | XMS_ITS | Encounter Summary ---
Author Organization [facility] Address [address] [place] [address] Care Team Providers Care Risk Lead Name Role Phone Paulie Alexandra MD Primary Care Provider [phone] Kailee Ferguson MD Unavailable Lucrecia Kaur MD PhD Unavailable [phone] Taylor Luke MD Unavailable [phone] Alma Akers PhD Unavailable [phone] Reji Duffy MD Primary Care Provider [phone] Brandon Haddad DO Primary Care Provider [phone] Encounter Details Date Type Department Care Team (Late st Contact Info) Description 01/28/[address] 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 Gender Identity Female 12/09/2020 7:19 AM CDT Sexual Orientation Not on file documented as of this encounter Plan of Treatment Scheduled Procedures Name Priority Associated Diagnoses Date/Ti me COLONOSCOPY Open Access Primary malignant neoplasm of colon (HCC) documented as of this encounter Visit Diagnoses Not on filedocumented in this encounter Care Teams Risk Lead Relationship Specialty Start Date End Date Paulie Alexandra MD [address] [place] [address] PCP - General 09/03/17 09/08/22 Reji Duffy MD [address] [place] [address] PCP - General Internal Medicine 09/09/22 05/10/24 Brandon Haddad DO [address] [place] [address] PCP - General Internal Medicine 05/11/24 Kailee Ferguson MD [address] [place] [address] Medical Oncologist/Cardiovascular Surgical Tech Medical Oncology 01/30/19 Lucrecia Kaur MD PhD [address] [place] [address] Radiation Oncologist Radiation Oncology 08/04/21 Taylor Luke MD [address] [place] [address] Surgeon Surgical Oncology 05/05/22 Alma Akers, PhD [address] [place] [address] Nurse Practitioner Radiation Oncology 05/05/22 documented as of this encounter
--- OUTSIDE RECORDS SUMMARY | 2025-03-27 13:54 | XMS_ITS | Clinical Summary ---
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 Personal history of malignant neoplasm of breast 07/20/2021 Bone disorder 07/20/2021 Malignant neoplasm of upper- outer quadrant of left breast in female, estrogen receptor positive 05/10/2021 Cancer Staging:Pathologic stage from 07/28/2021:Stage IA(pT1b, pN0(sn), cM0, G2, ER+, OK+, HER2-) - Signed by Graeme Edwards MD PhD on 07/28/2021 Abnormal mammogram 04/17/2021 Dilated cardiomyopathy 03/11/2021 PVC's (premature ventricular contractions) 12/30 Adenocarcinoma of colon metastatic to liver 10/27 Overview (11/07/2020): Added automatically from request for surgery [id number] Non-rheumatic mitral regurgitation 02/16/2020 NÚÑEZ (dyspnea on [...] Description 01/30/2025 1:00 PM CDT Office Visit [facility] Radiation Oncology at [facility] [address] [place] [address] Xenia Pop PA Malignant neoplasm of upper-outer quadrant of left breast in female, estrogen receptor positive (HCC) (Primary Dx) 01/30/2025 10:53 AM CDT - 01/30/2025 11:59 PM CDT Hospital Encounter [facility] [place] [address] Screening mammogram, encounter for Discharge Disposition: Discharge to home or self care 01/11/[address] [facility] [address] [place] [address] Umang Weathers MD from Last 3 Months Immunizations Immunization Administration [...] (congestive heart failure) (HCC) History of chemotherapy [id number]. 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 Gender Identity Female 12/09/2020 7:19 AM CDT [...] Fall Risk Assessment 01/04/2025 01/05/2024 Influenza Vaccine (#1) 2025 06/22/2020 Osteoporosis Screening-Bone Density Scan 05/25/2026 05/25/2024 Colon [...] history exists Medical Devices Implanted Type Area Professor Of Latin American Studies Device Identifier Shelf Expiration Date Model / Serial / Lot Port- 6 Implanted: (Quantity not on file) Right: Chest Wall Travtar [id number] Magseed 18ga 7cm Marker Breast Biopsy - [id number] Implanted:Qty : 1 on 05/20/2021 at [facility] Left: Breast Travtar [id number] 12/26/2024 [id number] Procedures Procedure Name Priority Date/Time Associated Diagnosis [...] Body N/A Radiographic Dorothy ging Historical Provider IMG DXA PROCEDURES Final Result * Colonoscopy (01/05/2024 1:14 PM CDT) Anatomical Region Laterality Modality Other Narrative Procedure Note Maykel Marshall MD - 01/05/2024 1:14 PM CDT ENDOSCOPY LAB Patient Name: Georgia Novoa Procedure Date: 01/05/2024 1:14 PM Date of : 1945 Admit Type: Outpatient Age: 78 Gender: Female Attending MD: Maykel Marshall M.D. Room: [facility] ENDOSCOPY ROOM 04 Note Status: Finalized Procedure: [...] The scope was passed under direct vision.The [id number] was introduced through the anusand advanced to the ileocolonic anastomosis. The colonoscopy was performed without difficulty. The patient tolerated the procedure well. The qualityof the bowel preparation was evaluated using the BBPS ([place] Bowel Preparation Scale) with scores of: Transverse [...] the days following this procedure please call [phone] ask for my nurse, Zohra Reyes. After hours and evenings please call [phone] and speak to theGI fellow packer insulation. Please tell the fellow that Dr. Marshall [...] Most Recently Relevant to Health Maintenance Insurance [facility] Member Subscriber Plan / Payer ( fective 2013-Present) Name:GEROGIA NOVOA Relation to Subscriber:Self Name:Georgia Novoa Payer ID:[id number] ([facility]) Type:MEDICARE RISK OTHER Address: [place] [address] [facility] [facility] Member Subscriber Plan / Payer (Ef fective 2013-Present) Name:GEORGIA NOVOA Relation to Subscriber:Self Name:Georgia Novoa Payer ID:[id number] ([facility]) Type:MEDICARE RISK OTHER Address: [address] [facility] Advance Directives For more information, please contact: [phone] * Full Code (Latest Code Status on File) Date Activated Date Inactivated Comments 01/05/2024 12:01 PM 01/05/2024 6:29 PM * Full Code Date Activated Date Inactivated Comments 12/04/2020 9:29 AM 12/04/2020 3:06 PM * Full Code Date Activated Date Inactivated Comments 09/15/2018 12:23 PM 09/18/2018 9:48 PM Care Teams Library Specialist Relationship Specialty Start Date End Date Brandon Haddad DO [address] [place], [place] [id number] PCP - General Internal Medicine 05/11/24 Kailee Ferguson MD [address] [place] [address] Medical Oncologist/Middle School Combination Teacher Medical Oncology 01/30/19 Lucrecia Kaur MD PhD [address] [facility] [place], [place] [id number] Radiation Oncologist Radiation Oncology 08/04/21 Taylor Luke MD [address] [facility] [place], [place] [id number] Surgeon Surgical Oncology 05/05/22 Alma Akers, PhD [address] [facility] [place] [address] Nurse Practitioner Radiation Oncology 05/05/22
--- OUTSIDE RECORDS SUMMARY | 2025-03-27 13:54 | XMS_ITS | Encounter Summary ---
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 Gender Identity Female 12/09/2020 7:19 AM CDT [...] on filedocumented in this encounter Care Teams Russet Repairer Relationship Specialty Start Date End Date Brandon Haddad DO [address] [place], [place] [id number] PCP - General Internal Medicine 05/11/24 Kailee Ferguson MD [address] [place], [place] [id number] Medical Oncologist/Senior Bi Architect Medical Oncology 01/30/19 Lucrecia Kaur MD PhD [address] [place], [place] [id number] Radiation Oncologist Radiation Oncology 08/04/21 Taylor Luke MD [address] [place] [address] Surgeon Surgical Oncology 05/05/22 Alma Akers, PhD [address] [place] [address] Nurse Practitioner Radiation Oncology 05/05/22 documented as of this encounter
--- OUTSIDE RECORDS SUMMARY | 2025-03-27 13:54 | XMS_ITS | Encounter Summary ---
Author Organization [facility] Address [address] [place] [address] Phone Care Team Providers Care Tea Taster Name Role Phone Paulie Alexandra MD Primary Care Provider [phone] Kailee Ferguson MD Unavailable Lucrecia Kaur MD PhD Unavailable Taylor Luke MD Unavailable [phone] Alma Akers PhD Unavailable [phone] Reji Duffy MD Primary Care Provider [phone] Brandon Haddad DO Primary Care Provider [phone] Encounter Details Date Type Department Care Team [...] on file 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 Gender Identity Female 12/09/2020 7:19 AM [...] on filedocumented in this encounter Care Teams Tea Taster Relationship Specialty Start Date End Date Paulie Alexandra MD [address] [facility] [address] [place] [address] PCP - General 09/03/17 09/08/22 Reji Duffy MD [address] [place] [address] PCP - General Internal Medicine 09/09/22 05/10/24 Brandon Haddad DO [address] [place] [address] PCP - General Internal Medicine 05/11/24 Kailee Ferguson MD [address] [place], [place] [id number] Medical Oncologist/Enterprise Solutions Architect Medical Oncology 01/30/19 Lucrecia Kaur MD PhD [address] [place], [place] [id number] Radiation Oncologist Radiation Oncology 08/04/21 Taylor Luke MD [address] [place], [place] [id number] Surgeon Surgical Oncology 05/05/22 Alma Akers, PhD [address] [place] [address] Nurse Practitioner Radiation Oncology 05/05/22 documented as of this encounter
[2025-03-27 15:05] LABS: Anion Gap 6 mmol/L (4-12); Blood Urea Nitrogen 20 mg/dL (7-17); Calcium 9.3 mg/dL (8.4-10.2); Carbon Dioxide 23 mmol/L (22-30); Chloride 103 mmol/L (98-107); Estimated Glomerular Filt Rate 41; Glucose 91 mg/dL (65-110); Potassium 4.3 mmol/L (3.4-5.0); Sodium 132 mmol/L (137-145)
== END 2025-03-27 13:43 | disposition home or self-care (01) ==
LOC: ANHLAB 13:43
PROVIDERS: PCP Internal Medicine; Visit Provider Internal Medicine Nephrology
DX: N18.31 Chronic kidney disease, stage 3a (principal)
CPT/HCPCS: 36415; 80048

== ENCOUNTER 2025-08-23 13:18 | Outpatient (CLI) | payer OTHER, SELFPAY ==
[2025-08-23 13:52] LABS: Hematocrit 39.9 % (37.0-47.0); Hemoglobin 13.0 g/dL (12.0-15.0); Immature Platelet Fraction Pct 3.3 % (0.9-11.2); Mean Corpuscular HGB Conc 32.6 g/dl (32-36); Mean Corpuscular Hemoglobin 30.7 pg (26-34); Mean Corpuscular Volume 94.3 fl (80-100); Platelet Count Result 157 k/mm3 (150-375); Red Blood Count 4.23 M/mm3 (4.2-5.4); White Blood Count 6.0 K/mm3 (4.5-10.0)
[2025-08-23 13:57] LABS: Add Urine Microscopic? NO; Appearance Urine Clear (Clear); Glucose Urine UA 3+ mg/dL (Negative); Leukocyte Esterase Ur Negative LEU/UL (Negative); Nitrate Urine Negative (Negative); Specific Grav Ur 1.007 (1.001-1.035)
[2025-08-23 14:05] LABS: Total Protein Urine Random 15 mg/dL; Ur Ttl Prot Creatinine Ratio 0.56 mg/mg (0-0.20)
[2025-08-23 14:12] LABS: Albumin Level 3.8 g/dL (3.5-5.1); Anion Gap 3 mmol/L (4-12); Blood Urea Nitrogen 20 mg/dL (7-17); Calcium 8.8 mg/dL (8.4-10.2); Carbon Dioxide 25 mmol/L (22-30); Chloride 105 mmol/L (98-107); Estimated Glomerular Filt Rate 47; Glucose 95 mg/dL (65-110); Potassium 3.9 mmol/L (3.4-5.0); Sodium 133 mmol/L (137-145)
[2025-08-23 14:24] LABS: Parathyroid Intact 64.0 pg/mL (14.5-75.2)
[2025-08-23 14:29] LABS: Free T4 Free Thyroxine 1.13 ng/dL (0.78-2.19)
[2025-08-23 14:40] LABS: Thyroid Stimulating Hormone 1.530 uIU/mL (0.465-4.680)
== END 2025-08-23 13:19 | disposition home or self-care (01) ==
PROVIDERS: PCP Nurse Practitioner; Visit Provider Internal Medicine Nephrology
DX: E03.9 Hypothyroidism, unspecified (principal); N18.31 Chronic kidney disease, stage 3a; D50.9 Iron deficiency anemia, unspecified
CPT/HCPCS: 36415; 80069; 81003; 82570; 83970; 84156; 84439; 84443; 85027; 85055